=== PATIENT | female | born 2000 ===

== ENCOUNTER 2023-06-19 17:44 | Emergency (ER) | payer OTHER, BC, SELFPAY ==
[2023-06-19 17:48] VITALS: BP 108/74; PULSE 105; RESP 18; TEMP 37.2; O2SAT 97; BMI 22.1
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
--- OUTSIDE RECORDS SUMMARY | 2023-06-19 18:48 | XMS_ITS | Clinical Summary ---
Author Name Unknown Organization [facility] Address [address] [place] [address] Care Team Providers Care Geriatric Assistant Name Role Phone No Ref-Primary, Physician Primary Care Provider Allergies No known active allergies Medications Medication Sig Dispensed Refills Start Date End Date Status ibuprofen (ADVIL,MOTRIN) 100 MG/5ML suspension Take 20 mLs (400 mg) by mouth every 6 hours as needed 120 mL 0 07/19/2015 Active hydrOXYzine (ATARAX) 25 MG tablet Take 1 tablet (25 mg) by mouth 3 times daily as needed for anxiety 12 tablet 11/21/2019 Active Encounters Date Type Department Care Team Description 04/29/2023 7:15 PM CDT - 04/29/2023 8:08 PM CDT Emergency [facility] Emergency Dept [address] [place] [address] Leandro Stark PA-C Fall, initial encounter; Neck pain on left side; Sinus tachycardia Discharge Disposition: Home or Self Care 04/29/2023 Travel from Last 3 Months Social History Tobacco Use Types Packs/Day Years Used Date Smoking Tobacco: Never Assessed Adolescent Education Answer Date Record ed Getting School Help Needed Not on file 10/29 Sex and Gender Information Value Date Recorded Sex Assigned at Not on file Gender Identity Not on file Sexual Orientation Not on file Last Filed Vital Signs Vital Sign Reading Time Taken Comments Blood Pressure 125/86 04/29/2023 8:05 PM CDT Pulse 105 04/29/2023 8:05 PM CDT Temperature 37.6 ??C (99.6 ??F) 04/29/2023 7:11 PM CD T Respiratory Rate 18 04/29/2023 7:11 PM CDT Oxygen Saturation 98% 04/29/2023 8:05 PM CDT Inhaled Oxygen Concentration - - Weight 59 kg (130 lb) 04/29/2023 7:11 PM CDT Height 160 cm (5' 3) 04/29/2023 7:11 PM CDT Body Mass Index 23.03 04/29/2023 7:11 PM CDT Plan of Treatment Health Maintenance Due Date Last Done Comments ADVANCE CARE PLANNING 2002 ANNUAL REVIEW OF HM ORDERS 2002 YEARLY PREVENTIVE VISIT 2002 HEPATITIS B IMMUNIZATION (2 of 3 - 3-dose series) 01/15/2004 12/18/2003 IPV IMMUNIZATION (3 of 3 - 4-dose series) 12/27/2007 06/26/2007, 12/18/2003 HIV SCREENING 2017 HEPATITIS C SCREENING 2020 CHLAMYDIA SCREENING 06/13/2021 06/13/2020, COVID-19 Vaccine ( season) 2022 04/27/2021, 03/30/2021 PHQ-2 (once per calendar year) 2023 PAP 06/05/2023 INFLUENZA VACCINE (Season Ended) 2023 11/27/2018, 11/24/2015, 12/25/2014, Additional history exists DTAP/TDAP/TD IMMUNIZATION (5 - Td or Tdap) 05/13/2024 05/13/2014, 06/26/2007, 12/18/2003, Additional history exists Pneumococcal Vaccine: Pediatrics (0 to 5 Years) and At-Risk Patients (6 to 64 Years) Aged Out 12/18/2003, 2002 No longer eligibl e based on patient's age to complete this topic HPV IMMUNIZATION Completed 12/25/2014, , 05/13/2014 MENINGITIS IMMUNIZATION Completed 03/09/2019, 05/13 RSV MONOCLONAL ANTIBODY Aged Out No l onger eligible based on patient's age to complete this topic Procedures Procedure Name Priority Date/Time Associated Diagnosis Comments XR CERVICAL SPINE 2/3 VIEWS STAT 04/29/2023 7:43 PM CDT EKG 12-LEAD, TRACING ONLY STAT 04/29/2023 7:20 PM CDT CHLAMYDIA TRACHOMATIS PCR Routine 06/13/2020 from Last 3 Months or Most Recently Relevant to Health Maintenance Results * Cervical spine XR, 2-3 views (04/29/2023 7:43 PM CDT) Anatomical Region Laterality Modality Spine Digital Radiogra phy 04/29/2023 7:43 PM CDT Impressions 04/29/2023 7:45 PM CDT IMPRESSION: No fracture. Normal vertebral heights and alignment. Normal disc spaces and facets for age. Normal extraspinal structures. Narrative 04/29/2023 7:45 PM CDT EXAM: XR CERVICAL SPINE 2/3 VIEWS LOCATION: [facility] DATE: 04/29/2023 INDICATION: left sided pain after a fall COMPARISON: None. Procedure Note Apollo Kaur MD - 04/29/2023 EXAM: XR CERVICAL SPINE 2/3 VIEWS LOCATION: [facility] DATE: 04/29/2023 INDICATION: left sided pain after a fall COMPARISON: None. IMPRESSION: No fracture. Normal vertebral heights and alignment. Normaldisc spaces and facets for age. Normal extraspinal structures. Leandro Stark PA-C IMG DIAGNOSTIC IMAGI NG ORDERABLES * EKG 12 lead (04/29/2023 7:20 PM CDT) Systolic Blood Pressure mmHg RADIOLOGY RESULTS Diastolic Blood Pressure mmHg RADIOLOGY RESULTS Ventricular Rate 137 BPM RAD IOLOGY RESULTS Atrial Rate 137 BPM RADIOLOG Y RESULTS AR Interval 132 ms RADIOLOG Y RESULTS QRS Duration 74 ms RADIOLO GY RESULTS QT 286 ms RADIOLOGY RESULTS QTc 431 ms RADIOLOGY RESULTS P [place] 50 degrees RADIOLOGY RESULTS R AXIS 80 degrees RADIOLOGY RESULTS T [place] 36 degrees RADIOLOGY RESULTS Interpretation ECG Sinus tachycardia Nonspecific ST abnormality Abnormal ECG When compared with ECG of 11-DEC-2019 00:11, No significant change was found Confirmed by - EMERGENCY ROOM, PHYSICIAN ([id number]), telegraph editor ONEL DOMINGUEZ ([place]) on 05/02/2023 7:13:18 AM RADIOLOGY RESULTS 04/29/2023 7:20 PM CDT 05/02/2023 7:13 AM CDT Leandro Stark PA-C ECG ORDERABLES RADIOLOGY RESULTS * Chlamydia trachomatis PCR (06/13/2020) Specimen Description VAG[facility]AL [facility]) Chlamydia Trachomatis PCR Negative Negative [facility] ([facility]) 06/13/2020 Narrative [facility] ([facility]) - 06/13/2020 LAB RESULT [facility] Provider Outside LAB - MICRO GENERAL ORDERABLES [facility] ([facility]) [address] [place] [address], [facility] [phone] from Last 3 Months or Most Recently Relevant to Health Maintenance Care Teams Geriatric Assistant Relationship Specialty Start Date End Date No Ref-Primary, Physician PCP - General 04/29/23
--- OUTSIDE RECORDS SUMMARY | 2023-06-19 18:48 | XMS_ITS | Referral Summary ---
Author Name Unknown Organization [facility] Address [address] [place] [id number] Care Team Providers Care Auto Parts Professional Name Role Phone No Ref-Primary, Physician Primary Care Provider Encounters Date Type Department Care Team Description 04/29/2023 Travel 04/29/2023 7:15 PM CDT - 04/29/2023 8:08 PM CDT Emergency [facility] Emergency Dept [address] [place] [address] [phone] Leandro Stark PA-C Fall, initial encounter; Neck pain on left side; Sinus tachycardia Discharge Disposition: Home or Self Care from Last 3 Months Allergies No known active allergies Medications Medication Sig Dispensed Refills Start Date End Date Status ibuprofen (ADVIL,MOTRIN) 100 MG/5ML suspension Take 20 mLs (400 mg) by mouth every 6 hours as needed 120 mL 0 07/19/2015 Active hydrOXYzine (ATARAX) 25 MG tablet Take 1 tablet (25 mg) by mouth 3 times daily as needed for anxiety 12 tablet 11/21/2019 Active Social History Tobacco Use Types Packs/Day Years [...] 04/29/2023 7:11 PM CDT Plan of Treatment Not on file Procedures Procedure Name Priority Date/Time Associated Diagnosis [...] EXAM: XR CERVICAL SPINE 2/3 VIEWS LOCATION: [facility] DATE: 04/29/2023 INDICATION: left sided pain after a fall COMPARISON: None. Procedure Note Apollo Kaur MD - 04/29/2023 EXAM: XR CERVICAL SPINE 2/3 VIEWS LOCATION: [facility] DATE: 04/29/2023 INDICATION: left sided pain [...] Atrial Rate 137 BPM RADIOLOG Y RESULTS ME Interval 132 ms RADIOLOG Y RESULTS QRS Duration 74 ms RADIOLO GY RESULTS QT 286 ms RADIOLOGY RESULTS QTc 431 ms RADIOLOGY RESULTS P [place] 50 degrees RADIOLOGY RESULTS R AXIS 80 degrees RADIOLOGY RESULTS T [place] 36 degrees RADIOLOGY RESULTS Interpretation ECG Sinus tachycardia Nonspecific ST abnormality Abnormal ECG When compared with ECG of 11-DEC-2019 00:11, No significant change was found Confirmed by - EMERGENCY ROOM, PHYSICIAN ([id number]), general expeditor ONEL DOMINGUEZ ([id number]) on 05/02/2023 7:13:18 AM RADIOLOGY RESULTS 04/29/2023 7:20 PM CDT 05/02/2023 7:13 AM CDT Leandro Stark PA-C ECG ORDERABLES RADIOLOGY RESULTS * Chlamydia trachomatis PCR (06/13/2020) Specimen Description [facility]) Chlamydia Trachomatis PCR Negative Negative [facility] ([facility]) 06/13/2020 Narrative [facility] ([facility]) - 06/13/2020 LAB RESULT [place] Provider Outside LAB - MICRO GENERAL ORDERABLES [facility] ([facility]) [address] [place] [address], [facility] [phone] from Last 3 Months or Most Recently Relevant to Health Maintenance Care Teams [employer] Professional Relationship Specialty Start Date End Date No Ref-Primary, Physician PCP - General 04/29/23
--- OUTSIDE RECORDS SUMMARY | 2023-06-19 18:49 | XMS_ITS ---
Author Name Unknown Organization [facility] Address [address] [place] [address] Care Team Providers Care Four Roll Calender Operator Name Role Phone Unavailable Unavailable Unavailable Surgery Details Not on file Complications Check Surgery Details section. Procedure Estimated Blood Loss Check Surgery Details section. Procedure Findings Check Surgery Details section. Procedure Specimens Taken Check Surgery Details section.
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
--- OUTSIDE RECORDS SUMMARY | 2023-06-19 18:49 | XMS_ITS | Encounter Summary ---
Author Name Unknown Organization [facility] Address [address] [place] [address] Care Team Providers Care Movie Shot Camera Operator Name Role Phone No Ref-Primary, Physician Primary Care Provider Encounter Details Date Type Department Care Team (Latest Contact Info) Description 04/29/2023 Travel Social History Tobacco Use Types Packs/Day Years Used Date Smoking Tobacco: Never Assessed Adolescent Education Answer Date Record ed Getting School Help Needed Not on file 10/29 Sex and Gender Information Value Date Recorded Sex Assigned at Not on file Gender Identity Not on file Sexual Orientation Not on file documented as of this encounter Plan of Treatment Not on file documented as of this encounter Visit Diagnoses Not on filedocumented in this encounter Care Teams Movie Shot Camera Operator Relationship Specialty Start Date End Date No Ref-Primary, Physician PCP - General 04/29/23 documented as of this encounter
--- OUTSIDE RECORDS SUMMARY | 2023-06-19 18:49 | XMS_ITS | Encounter Summary ---
Author Name Unknown Organization [place] Address [address] [place] [address]. [place] [address] Care Team Providers Care Bag End Sewer Name Role Phone Maria M Lee MD Primary Care Provider [phone] Terra Mcintyre PA-C Unavailable [phone] Fito Valencia MD Unavailable No Ref-Primary, Physician Primary Care Provider Reason for Visit * Reason Onset Date Comments MH/CD Inpatient 12/11/2019 Encounter Details Date Type Department Care Team ([facility] st Contact Info) Description 12/11/2019 Telephone [facility] Behavioral Health Intake [address] [place] [address] Generic, Behavioral IntakeMD MH/CD Inpatient Social History Tobacco Use Types Packs/Day Years Used Date Smoking Tobacco: Never Assessed Sex and Gender Information Value Date Recorded Sex Assigned at Not on file Gender Identity Not on file Sexual Orientation Not on file COVID-19 Exposure Response Date Recorded In the last month, have you been in contact with someone who was confirmed or suspected to have Coronavirus / COVID-19? No / Unsure 12/10/2019 11:12 PM HEADER SETUP OPERATOR documented as of this encounter Miscellaneous Notes * Telephone Encounter - Mami Almaguer - 12/11/2019 1:13 AM CST Patient cleared and ready for behavioral bed placement: Yes S: 19/F in [facility] ED for anxiety. Report from [facility] at 0111AM. B: Hx of anxiety. Pt reports an increase in anxiety sxs for the past few months and have escalated in the past 3 days. Pt reports not eating or sleeping well, has had an increase in panic attacks and occasional difficulty leaving her house due to her anxiety. Pt attends OP day treatment at [facility] and [facility] 5 days a week. Pt reports between school and OP treatment, she has a lot on her plate which exacerbates her anxiety. Pt reports not being med-compliant and that she feels something bad will happen if she takes her medications. No SI, SIB nor HI. No reported aggressive behaviors or psychotic sxs. Per concrete curer, pt is calm, pleasant and cooperative in the ED. Pt denies current drug or etoh abuse last reported use was on 10/21/19. No prior IP MH admissions. A: Voluntary - dad will sign pt in. No medical concerns. No covid sxs. Covid has been ordered, not collected. Drug screen has not been ordered. R: 0306AM - Called ED and ED reports pt was discharged home. Intake informed ED that pt will be removed from IP MH placement work list at this time. ER SETUP OPERATOR documented in this encounter Plan of Treatment Not on file documented as of this encounter Visit Diagnoses Not on filedocumented in this encounter Care Teams Bag End Sewer Relationship Specialty Start Date End Date Maria M Lee MD [address] [address] PCP - General Pediatrics 07/18/15 04/28/23 No Ref-Primary, Physician PCP - General 04/29/23 Terra Mcintyre PA-C [address] [place] [place] [address] Physician Health Care / Medical Job Titles Urology 06/18/20 04/28/23 Fito Valencia MD [facility] [address] [place] [address] Referring Physician Emergency Medicine 06/18/20 3 4 documented as of this encounter
--- OUTSIDE RECORDS SUMMARY | 2023-06-19 18:49 | XMS_ITS | Encounter Summary ---
Author Name Unknown Organization [place] Address [address] [place] [address] Care Team Providers Care Surgical Instrument Maker Name Role Phone No Ref-Primary, Physician Primary Care Provider Reason for Visit * Reason Comments Neck Pain Encounter Details Date Type Department Care Team (Late st Contact Info) Description 04/29/2023 7:15 PM CDT - 04/29/2023 8:08 PM CDT Emergency [facility] Emergency Dept [address] [place] [address] [phone] Leandro Stark PA-C [facility] [address] [place], [place] [id number] Fall, initial encounter; Neck pain on left side; Sinus tachycardia Discharge Disposition: Home or Self Care Social History Tobacco Use Types Packs/Day Years Used Date Smoking Tobacco: Never Assessed Adolescent Education Answer Date Record ed Getting School Help Needed Not on file 10/29 Sex and Gender Information Value Date Recorded Sex Assigned at Not on file Gender Identity Not on file Sexual Orientation Not on file documented as of this encounter Last Filed Vital Signs Vital Sign Reading [...] Mass Index 23.03 04/29/2023 7:11 PM CDT documented in this encounter Discharge Instructions * Discharge Instructions* Leandro Stark PA-C - 04/29/2023 8:03 PM CDT For pain, you may take Tylenol 1000mg every 8 hours and ibuprofen 400mg every 6 hours for pain. Use ice or heat as needed for discomfort. Rest. * Attachments The following attachments cannot be sent through Care Everywhere. * Cervical Pain (Turkmen) documented in this encounter Medications at Time of Discharge Medication Sig Dispensed Refills Start Date End Date hydrOXYzine (ATARAX) 25 MG tablet Take 1 tablet (25 mg) by mouth 3 times daily as needed for anxiety 12 tablet 11/21/2019 ibuprofen (ADVIL,MOTRIN) 100 MG/5ML suspension Take 20 mLs (400 mg) by mouth every 6 hours as needed 120 mL 0 07/19/2015 documented as of this encounter ED Notes * Curly Diggs RN - 04/29/2023 7:09 PM CDT Here for concern of left lateral neck pain. Stated that she got upset, jumped onto her couch and landed wrong, hit her head onto herself about 30 minutes ago and is now have neck pain. HR in the 140s-150s at rest, though patient is stating that she is feeling anxious. ABCs intact. Triage Assessment (Adult) Row Name 04/29/23 7686 Triage Assessment Airway WDL WDL Respiratory WDL Respiratory WDL WDL Cardiac WDL Cardiac WDL WDL * Leandro Stark PA-C - 04/29/2023 6:57 PM CDT History Chief Complaint: Neck Pain The history is provided by the patient. Abida Laureano is a 22 year old female who presents to the ED for left-sided neck pain after jumping on a couch approximately 30 minutes ago. Abida reports she was at her home and jumped on the couch wrong and landed on her head, twisting her neck backward and to the right. She denies any numbness, weakness, paresthesias or chest pain. Reports shortness of breath with her anxiety. She denies taking anything for pain. Independent Historian: None - Patient Only Review of External Notes: None Medications: Atarax Past Medical History: Anxiety Depression Physical Exam Patient Vitals for the past 24 hrs: BP Temp Temp src Pulse Resp SpO2 Height Weight 04/29/232004 125/86 -- -- 105 -- 98 % -- -- 04/29/23 191 (!) 143/94 99.6 ??F (37.6 ??C) Oral (!) 146 18 100 % 1.6 m (5' 3) 59 kg (130 lb) Physical Exam Constitutional: Pleasant. Cooperative. Eyes: Pupils equally round and reactive HENT: Head is normal in appearance. Oropharynx is normal with moist mucus membranes. Cardiovascular: Tachycardic. Regular rhythm and without murmurs. Respiratory: Normal respiratory effort, lungs are clear bilaterally. Musculoskeletal: Full ROM of bilateral upper extremities. 5/5 tube cutter strength bilaterally. Full ROM of C spine. No midline TTP. Skin: Normal, without rash. Neurologic: Cranial nerves grossly intact, normal cognition, no focal deficits. Alert and oriented x 3. Sensation intact to bilateral upper extremities. Psychiatric: Normal affect. Nursing notes and vital signs reviewed. Emergency Department Course ECG ECG taken at 1919, ECG read at [address] abnormality. Abnormal ECG No significant change as compared to prior, dated 12/11/2019. Rate 137 bpm. IA interval 132 ms. QRS duration 74 ms. QT/QTc 286/431 ms. P-R-T axes 50 80 36. Imaging: Cervical spine XR, 2-3 views Final Result IMPRESSION: No fracture. Normal vertebral heights and alignment. Normal disc spaces and facets for age. Normal extraspinal structures. Emergency Department Course & Assessments: Interventions: Medications acetaminophen (TYLENOL) tablet 1,000 mg (1,000 mg Oral $Given 04/29/231934) Assessments: 1919 I obtained history and examined the patient as noted above. 2004 I rechecked the patient and explained findings. We discussed plan for discharge and patient isin agreement with plan. Independent Interpretation (X-rays, CTs, rhythm strip): I personally evaluated the XR, no obvious compression fracture noted. Consultations/Discussion of Management or Tests: None Social Determinants of Health affecting care: None Disposition: The patient was discharged. Impression & Plan [facility] Diagnoses: None Medical Decision Making: Abida Laureano is a 22 year old female who presents to the ED for evaluation of neck pain after landing awkwardly. See HPI as above for additional details. Vitals and physical exam as above. X-ray obtained as above is negative for acute bony abnormality. Suspect strain or other soft tissue abnormality such as disc pathology. Pain developed after trauma, no suggestion that this is alternative etiology such as meningitis at this time. Discussed use of Tylenol, ibuprofen, ice, heat as needed. Dofeel patient safe for discharge home. Follow-up with primary as needed. ECG obtained prior to my evaluation due to tachycardia. Patient endorses anxiety. Suspect this as etiology of tachycardia. Discussed reasons to return. All questions answered. Patient discharged to home in stable condition. Diagnosis: ICD-10-CM 1. Fall, initial encounter W19.XXXA 2. Neck pain on left side M54.2 3. Sinus tachycardia R00.0 Scribe Disclosure: I, Kiersten Torres, am serving as a scribe at 7:38 PM on 04/29/2023 to document services personallyperformed by Leandro Stark PA-C based on my observations and the provider's statements to me. 04/29/2023 Leandro Stark PA-C This record was created at least in part using electronic voice recognition software, so please excuse any typographical errors. Leandro Stark PA-C 04/29/232109 documented in this encounter Plan of Treatment Not on file documented as of this encounter Procedures Procedure Name Priority Date/Time Associated Diagnosis Comments XR CERVICAL SPINE 2/3 VIEWS STAT 04/29/2023 7:43 PM CDT EKG 12-LEAD, TRACING ONLY STAT 04/29/2023 7:20 PM CDT documented in this encounter Results * Cervical spine XR, 2-3 views (04/29/2023 7:43 PM CDT) Anatomical Region Laterality Modality Spine Digital Radiogra phy 04/29/2023 7:43 PM CDT Impressions 04/29/2023 7:45 PM CDT IMPRESSION: No fracture. Normal vertebral heights and alignment. Normal disc spaces and facets for age. Normal extraspinal structures. Narrative 04/29/2023 7:45 PM CDT EXAM: XR CERVICAL SPINE 2/3 VIEWS LOCATION: [facility] DATE: 04/29/2023 INDICATION: left sided pain after a fall COMPARISON: None. Procedure Note Apollo Kaur MD - 04/29/2023 EXAM: XR CERVICAL SPINE 2/3 VIEWS LOCATION: [facility] DATE: 04/29/2023 INDICATION: left sided pain [...] Atrial Rate 137 BPM RADIOLOG Y RESULTS IA Interval 132 ms RADIOLOG Y RESULTS QRS Duration 74 ms RADIOLO GY RESULTS QT 286 ms RADIOLOGY RESULTS QTc 431 ms RADIOLOGY RESULTS P [place] 50 degrees RADIOLOGY RESULTS R AXIS 80 degrees RADIOLOGY RESULTS T [place] 36 degrees RADIOLOGY RESULTS Interpretation ECG Sinus tachycardia Nonspecific ST abnormality Abnormal ECG When compared with ECG of 11-DEC-2019 00:11, No significant change was found Confirmed by - EMERGENCY ROOM, PHYSICIAN ([id number]), editorial manager ONEL DOMINGUEZ ([place]) on 05/02/2023 7:13:18 AM RADIOLOGY RESULTS 04/29/2023 7:20 PM CDT 05/02/2023 7:13 AM CDT Leandro Stark PA-C ECG ORDERABLES RADIOLOGY RESULTS documented in this encounter Visit Diagnoses Diagnosis Fall, initial encounter Neck pain on left side Cervicalgia Sinus tachycardia Other specified cardiac dysrhythmias documented in this encounter Administered Medications Inactive Administered Medications - up to 3 most recent administrations Medication Order MAR Action Action Date Dose Rate Site acetaminophen (TYLENOL) tablet 1,000 mg 1,000 mg, Oral, ONCE, On Tue04/29/23 at 1935, For 1 dose, Maximum acetaminophen dose from all sources = 75 mg/kg/day not to exceed 4 gram $Given 04/29/2023 7:35 PM CDT 1,000 mg documented in this encounter Active and Recently Administered Medications Times are shown in CDT. Scheduled Medication Order 04/27/2023 04/28/2023 04/29/2023 acetaminophen (TYLENOL) tablet 1,000 mg (COMPLETED) 1,000 mg, Oral, ONCE, On Tue04/29/23 at 1935, For 1 dose, Maximum acetaminophen dose from all sources = 75 mg/kg/day not to exceed 4 gram 1934 ($Given - Provi antonino: Daisha Savage RN) documented in this encounter Care Teams Surgical Instrument Maker Relationship Specialty Start Date End Date No Ref-Primary, Physician PCP - General 04/29/23 documented as of this encounter
--- OUTSIDE RECORDS SUMMARY | 2023-06-19 18:49 | XMS_ITS | Clinical Summary ---
Author Name Unknown Organization [facility] Address [address], [place] [address] Care Team Providers Care Emerging Technologies Director Name Role Phone Jp White MD Primary Care Provider [phone] Source Comments You are receiving this document as you are listed as the primary care provider,follow-up provider, or the patient has been referred to you for consultation.This is in compliance with the Medicare and[facility] Hospital[facility] EHR Incentive Program,which states Providers who transition their patient to another setting of careor provider of care or refers their patient to another provider of care shouldprovide summary care record for each transition of care or referral. [facility] Allergies No known active allergies Medications Medication Sig Dispensed Refills Start Date End Date Status oxyCODONE (ROXICODONE) 5 MG immediate release tabletIndications:An kle fracture, right, closed, with routine healing, subsequent encounter Take 5 mg by mouth every 4 hours as needed for Pain. Active acetaminophen (TYLENOL) 325 MG tabletIndications:An kle fracture, right, closed, with routine healing, subsequent encounter Take 325-650 mg by mouth every 4 hours as needed for Pain. Active hydrOXYzine HCl (ATARAX) 25 MG tablet Take 1-2 Tablets by mouth every 6 hours as needed for Itching. 20 Tablet 12/18/2018 Active phenazopyridine (PYRIDIUM) 200 MG tablet Take 200 mg by mouth three times a day as needed. 06/06/2020 Active ibuprofen (MOTRIN) 200 MG tablet Take 200-400 mg by mouth every 4 hours as needed for Pain. Active compounded diazePAM vaginal suppositoryIndicatio ns:Pelvic floor dysfunction in female Insert 5 mg vaginally daily at bedtime. 90 Each 08/19/2020 Active Active Problems Problem Noted Date Diagnosed Date Ankle fracture, right 07/28/2016 Social History Tobacco Use Types Packs/Day Years Used Date Smoking Tobacco: Never Smokeless Tobacco: Never Alcohol Use Standard Drinks/Week Comments No 0 (1 standard drink = 0.6 oz pur e alcohol) Sex and Gender Information Value Date Recorded Sex Assigned at Not on file Gender Identity Not on file Sexual Orientation Not on file Last Filed Vital Signs Vital Sign Reading Time Taken Comments Blood Pressure 102/72 06/20/2020 9:25 AM CDT Pulse 105 06/20/2020 9:25 AM CDT Temperature 36.9 ??C (98.5 ??F) 12/18/2018 6:59 PM CS T Respiratory Rate 14 06/20/2020 9:25 AM CDT Oxygen Saturation 98% 12/18/2018 6:59 PM LADIES' LOCKER ROOM ATTENDANT Inhaled Oxygen Concentration - - Weight - - Height - - Body Mass Index - - Plan of Treatment Health Maintenance Due Date Last Done Comments Cervical Cancer Screening Due 2002 Hep C Screening (Preventive Services) 2002 IPV (Polio) (3 of 3 - 4-dose series) 12/27/2007 06/26/2007, 12/18/2003 HIV Screening (Preventive Services) 2018 Adult Preventive Visit 2020 HepB (1) 2021 Chlamydia 06/13/2021 06/13/2020 COVID-19 Vaccine ( - season) 2022 Influenza (Season Ended) 2023 019, 11/24/2015, 12/25/2014, Additional history exists DTaP/Tdap/Td (5 - Tdap) 05/13/2024 05/14/19 15, 06/26/2007, 12/18/2003, Additional history exists Zoster/Shingles (1 of 2) 2052 Hib Completed 12/18/2003 Pneumococcal Aged Out 12/18/2003, 2002 No lo nger eligible based on patient's age to complete this topic HepA Completed 12/26/2007, 06/26/2007 HPV Vaccine Completed 12/25/2014, 08/08, 05/13/2014 MCV4 Completed 03/09/2019, 05/13/2014 Care Teams Emerging Technologies Director Relationship Specialty Start Date End Date Jp White MD [facility] [address] PCP - General Family Practice 12/18/18
--- OUTSIDE RECORDS SUMMARY | 2023-06-19 18:49 | XMS_ITS | Clinical Summary ---
Author Name Unknown Organization [facility] Address [address] [place] [address] Care Team Providers Care Line Ordering Clinician Name Role Phone Unavailable Primary Care Provider Unavailabl e Source Comments Patient records contain information from all sites at [facility]. For routine questions regarding patient records, call [phone] during business hours, M-F 8:00 AM - 5:00 PM Central Time. Record requests for emergency care only can be directed to [phone] at any time.[facility] Allergies No known active allergies Medications Medication Sig Dispensed Refills Start Date End Date Status escitalopram (Lexapro) 10 mg tablet Take 1 tablet by mouth. 02/24/2021 Active hydrOXYzine (VISTARIL) 25 mg/mL injection 1 tablet as needed Active propranoloL (INDERAL) 10 mg tablet TAKE 1 TO 2 TABLETS BY MOUTH EVERY DAY NEEDED FOR ANXIETY 07/27/2021 Active LORazepam (ATIVAN) 1 mg tablet Take 0.5 mg by mouth. 08/09/2021 Active Active Problems No known active problems Social History Tobacco Use Types Packs/Day Years Used Date Smoking Tobacco: Former Cigarettes Q uit: 09/19/2021 Tobacco Cessation:Counseling Given: Not Answered Alcohol Use Standard Drinks/Week Comments Never 0 (1 standard drink = 0.6 oz pur e alcohol) Nutrition Answer Date Recorded Nutrition: EVOO Fat Source Unknown 06/17 Nutrition: Servings of Fruits/Vegetables per Day Not on file 06/17/2020 Dental Answer Date Recorded Dental: Regular Dentist Unknown 06/18/19 21 Sex and Gender Information Value Date Recorded Sex Assigned at Not on file Gender Identity Not on file Sexual Orientation Not on file Last Filed Vital Signs Vital Sign Reading Time Taken Comments Blood Pressure 124/70 10/03/2021 8:45 PM CDT Pulse 92 10/03/2021 8:45 PM CDT Temperature 36.8 ??C (98.2 ??F) 10/03/2021 8:02 PM CD T Respiratory Rate 20 10/03/2021 8:45 PM CDT Oxygen Saturation 98% 10/03/2021 8:45 PM CDT Inhaled Oxygen Concentration - - Weight 70.4 kg (155 lb 3.3 oz) 10/03/2021 8:03 P M CDT Height 160 cm (5' 3) 10/03/2021 8:03 PM CDT Body Mass Index 27.49 10/03/2021 8:03 PM CDT Plan of Treatment Health Maintenance Due Date Last Done Comments Cervical Cancer Screening 2002 Chlamydia and Gonorrhea Screening 2002 HIV Screening 2002 Hearing Screening during Well Child Visit 2002 Hepatitis C Screening 2002 1 week Well Child Check-Up 2002 1 month Well Child Check-Up 2002 2 month Well Child Check-Up 2002 4 month Well Child Check-Up 2002 6 month Well Child Check-Up 2002 9 month Well Child Check-Up 02/03/2003 12 month Well Child Check-Up 05/05/2003 15 month Well Child Check-Up 08/05/2003 18 month Well Child Check-Up 11/05/2003 Hepatitis B Vaccines (2 of 3 - 3-dose series) 01/15/2004 12/18/2003 2 year Well Child Check-Up 05/04/2004 30 month Well Child Check-Up 11/04/2004 3 year Well Child Check-Up 05/04/2005 Well Child Check-Up Completed in Past Year 05/04/2005 4 year Well Child Check-Up 05/04/2006 5 year Well Child Check-Up 05/05/2007 6 year Well Child Check-Up 05/04/2008 7 year Well Child Check-Up 05/04/2009 8 year Well Child Check-Up 05/04/2010 9 year Well Child Check-Up 05/05/2011 10 year Well Child Check-Up 05/04/2012 11 year Well Child Check-Up 05/04/2013 12 year Well Child Check-Up 05/04/2014 13 year Well Child Check-Up 05/05/2015 14 year Well Child Check-Up 05/04/2016 15 year Well Child Check-Up 05/04/2017 16 year Well Child Check-Up 05/04/2018 19 year Well Child Check-Up 05/05/2019 18 year Well Child Check-Up 05/04/2020 19 year Well Child Check-Up 05/04/2021 20 year Well Child Check-Up 05/04/2022 COVID-19 Vaccine ( season) 2022 04/27/2021, 03/30/2021 Influenza Vaccine (#1) 2022 9, 11/24/2015, 12/25/2014, Additional history exists Depression Screening (Annual PHQ-2) 02/07/2023 23 year Well Child Check-Up 05/05/2023 Well Child Check-Up (WCC) 05/05/2023 DTaP,Tdap,and Td Vaccines (5 - Td or Tdap) 05/13/2024 05/13/2014, 06/26/2007, 12/18/2003, Additional history exists Pneumococcal vaccine (0-64 years) Aged Out 12/18/2003, 2002 No longer eligibl e based on patient's age to complete this topic HPV Vaccines Completed 12/25/2014, 08/08, 05/13/2014 Meningococcal Vaccine Completed 03/09/2019, 015
== END 2023-06-19 19:35 | disposition home or self-care (01) ==
PROVIDERS: Emergency Provider Family Medicine
DX: G44.319 Acute post-traumatic headache, not intractable (principal); F07.81 Postconcussional syndrome
CPT/HCPCS: 70450; 72125; 99284

== ENCOUNTER 2023-07-03 14:11 | Emergency (ER) | payer BC, SELFPAY ==
[2023-07-03 14:13] VITALS: BP 120/75; PULSE 99; RESP 18; TEMP 36.8; O2SAT 98; BMI 23.0
[2023-07-03 14:30] LABS: Appearance Urine Cloudy (Clear); Bilirubin Urine Negative (Negative); Blood Urine 2+ (Negative); Color Urine Yellow (Yellow); Glucose Urine Negative (Negative); Ketones Urine Negative (Negative); Leukocyte Esterase Urine Trace (Negative); Nitrite Urine Negative (Negative); Protein Urine Negative (Negative); pH Urine 8.5 (5.0-8.5)
[2023-07-03 14:39] LABS: WBC Urine 0-2 (0-5)
[2023-07-03 14:40] LABS: Amorphous Sediment Urine Many; Bacteria Urine Few; Squamous Epithelial Cell Urine Moderate (None-Few)
--- NOTE | 2023-07-03 14:48 | ED_ITS ---
HPI - General Adult General Chief complaint: Groin Pain Stated complaint: Poss UTI Time Seen by Provider: 07/03/23 14:15 Source: patient Mode of arrival: ambulatory Limitations: no limitations History of Present Illness HPI narrative: 23-year-old female coming in today complaining of dysuria, vaginal itching and discharge. States that symptoms have been present for the last 2 days. The dysuria however just started this morning. She denies any fevers or chills. She denies any changes in the color or scent of her urine. She denies any flank or abdominal pain. Denies any nausea or vomiting. Does state that 2 days ago she had a new sexual partner in the did use a condom. She is concerned about the potential of STI's. States that the discharged itching was present prior to her sexual encounter. Describes the discharge as chunky and white. Related Data Home Medications ?Medication ?Instructions ?Recorded ?Confirmed lorazepam 0.5 mg tablet 0.5 mg PO 3XD PRN panic attack 06/19/23 06/19/23 quetiapine 50 mg tablet,extended 50 mg PO QPM depressive disorder 06/19/23 06/19/23 release 24 hr sertraline 100 mg tablet 100 mg PO DAILY 06/19/23 06/19/23 sertraline 50 mg tablet 50 mg PO DAILY 06/19/23 06/19/23 tretinoin 0.025 % topical cream applic topical 06/19/23 (Retin-A) Previous Rx's ?Medication ?Instructions ?Recorded fluconazole 100 mg tablet 100 mg PO DAILY #1 tab 07/03/23 (Diflucan) Allergies Allergy/AdvReac Type Severity Reaction Status Date / Time No Known Drug Allergies Allergy Verified 06/19/23 17:55 Review of Systems Status of ROS: Reports: 6 or more systems reviewed and unremarkable except as noted in History and below PFSH PFS Social History Smoking Status: Current every day smoker How often do you have a drink containing alcohol: 2-4 times a month AUDIT-C Alcohol total score: 2 Non-prescribed substance use: denies use Exam Narrative: Exam Narrative: Well-nourished well-developed patient in no acute distress. Alert and oriented. Answers questions appropriately. Mood and affect are appropriate. Thoughts are goal oriented and rational. No tangential or magical thinking noted. Patient speaks in full sentences without needing to catch their breath. HEENT: Normocephalic atraumatic. Pupils are equally round reactive to light. Extraocular muscles are intact. Conjunctivae are moist without any icterus noted. Moist mucous membranes. Skin: Exposed skin Well perfused without any obvious rashes. : Defers Const: Vital Signs, click to edit/add: Vital Signs - 24 hr 07/03/23 14:13 Temperature 98.3 F Pulse Rate [Right Pulse Oximeter] 99 Respiratory Rate 18 Blood Pressure [Ri ght Upper Arm] 120/75 Pulse Oximetry 98 Oxygen Delivery Me thod Room Air Course Course ED Course: Urinalysis shows cloudy urine with 2+ blood, trace leukocyte esterase, 10-25 RBCs. However did have moderate squamous epithelial cells. Of note, patient is not menstruating today. Her next menses is due any day. Vital Signs Vital signs: Initial Vital Signs Temperature 98.3 F 07/03/23 14:13 Temperature Source Temporal Artery Scan 07/03/23 14:13 Pulse Rate 99 07/03/23 14:13 Pulse Rhythm Regular 07/03/23 14:13 Pulse Strength 3+ Normal 07/03/23 14:13 Respiratory Rate 18 07/03/23 14:13 Blood Pressure 120/75 07/03/23 14:13 Blood Pressure Mean 90 07/03/23 14:13 Blood Pressure Position Sitting 07/03/23 14:13 Pulse Oximetry 98 07/03/23 14:13 Oxygen Delivery Method Room Air 07/03/23 14:13 Vital Signs Temperature 98.3 F 07/03/23 14:13 Pulse Rate 99 07/03/23 14:13 Respiratory Rate 18 07/03/23 14:13 Blood Pressure 120/75 07/03/23 14:13 Pulse Oximetry 98 07/03/23 14:13 Oxygen Delivery Method Room Air 07/03/23 14:13 Temperature 98.3 F 07/03/23 14:13 Pulse Rate 99 07/03/23 14:13 Respiratory Rate 18 07/03/23 14:13 Blood Pressure 120/75 07/03/23 14:13 Pulse Oximetry 98 07/03/23 14:13 Oxygen Delivery Method Room Air 07/03/23 14:13 Medical Decision Making MDM Narrative Medical decision making narrative: 23-year-old female with symptoms consistent with yeast vaginitis. Potential for UTI. Again, patient did not wish to have a exam today. Will treat with 1 dose of Diflucan and Keflex for 5 days. We discussed STI testing, since her sexual intercourse was only 2 days ago would be too early for anything to come back positive. I recommend she follow up with her clinic in anywhere from 2-4 weeks to have STI testing done. Lab Data Lab results reviewed: Yes I reviewed the patient's lab results Labs: Lab Results 07/03/23 Range/Units 14:23 Urine Color Yellow (Yellow) Urine Appearance Cloudy A (Clear) Urine pH 8.5 (5.0-8.5) Ur Specific [place] 1.020 (1.000-1.030) Urine Protein Negative (Negative) Urine Glucose (UA) Negative (Negative) Urine Ketones Negative (Negative) Urine Blood 2+ A (Negative) Urine Nitrite Negative (Negative) Urine Bilirubin Negative (Negative) Urine Urobilinogen 1.0 (0.2-1.0) Ur Leukocyte Esterase Trace A (Negative) Urine RBC 10-25 A (0-2) Urine WBC 0-2 (0-5) Ur Squamous Epith Cells Moderate A (None-Few) Amorphous Sediment Many A (None) Urine Bacteria Few A (None) Discharge Plan Discharge Clinical Impression: UTI (urinary tract infection), Yeast vaginitis Patient Disposition: Home, Self-Care Condition: Stable Additional Instructions: Diflucan for yeast vaginitis sent to pharmacy. Keflex for UTI sent to [facility]. Recommend you follow-up with your primary care provider in 2-4 weeks to request sexually transmitted infection testing. Prescriptions: New fluconazole [Diflucan] 100 mg tablet 100 mg PO DAILY Qty: 1 0RF No Action tretinoin [Retin-A] 0.025 % cream topical sertraline 100 mg tablet 100 mg PO DAILY lorazepam 0.5 mg tablet 0.5 mg PO 3XD PRN (Reason: panic attack) sertraline 50 mg tablet 50 mg PO DAILY Hold Instructions: Order Change quetiapine 50 mg tablet extended release 24 hr 50 mg PO QPM Follow Up/Referrals: Provider,Not a Local [Primary Care Provider] - Stand Alone Forms: [employer] Info Instructions
--- OUTSIDE RECORDS SUMMARY | 2023-07-03 14:51 | XMS_ITS | Clinical Summary ---
Author Organization [facility] [employer] [facility] Address [place], [place] [address] Care Team Providers Care Internal Medicine Veterinary Technician Name Role Phone Benjy Li MD Primary Care Provider [phone] Allergies No known active allergies Medications Medication [...] Encounters Date Type Department Care Team Description 06/23/2023 Orders Only [facility] [address] [place] [address] [phone] Benjy Li MD Outside Order 06/13/2023 Telephone [facility] [address] [place] [address] Benjy Li MD Lab (No Orders) 06/09/2023 Travel from Last 3 Months Immunizations Name Administration [...] Comments Blood Pressure 102/68 01/11/2023 8:36 AM PUMP OILER Pulse 92 01/11/2023 8:36 AM PUMP OILER Temperature 36.6 ??C (97.9 ??F) 01/07/2023 11:[address] Respiratory Rate 16 11/18/2022 10:07 AM CDT Oxygen Saturation 98% 01/07/2023 11:26 AM PUMP OILER Inhaled Oxygen Concentration - - Weight 77.6 kg (171 lb) 01/11/2023 8:36 AM PUMP OILER Height 160.7 cm (5' 3.25) 01/11/2023 8:36 AM CS T Body Mass Index 30.05 01/11/2023 8:36 AM PUMP OILER Plan of Treatment Health Maintenance Due Date [...] age [age] Completed 03/09/2019, 05/13/2014 Care Teams Internal Medicine Veterinary Technician Relationship Specialty [place] [address] [place], [place] [id number] PCP - General Family Practice 03/21/23
--- OUTSIDE RECORDS SUMMARY | 2023-07-03 14:51 | XMS_ITS | Encounter Summary ---
Author Organization [facility] Address [address] [place] [address]. [place] [address] Care Team Providers Care Automated Process Operator Name Role Phone Maria M Lee MD Primary Care Provider [phone] Terra Mcinty[place] PA-C Unavailable Fito Valencia MD Unavailable No Ref-Primary, Physician Primary Care Provider Reason for Visit * Reason Onset Date Comments MH/CD Inpatient 12/11/2019 Encounter Details Date Type Department Care Team ([facility] st Contact Info) Description 12/11/2019 Telephone [facility] Intake [address] [place] [address] Generic, Behavioral Intake, MH/CD Inpatient Social History Tobacco Use Types [...] COVID-19? No / Unsure 12/10/2019 11:12 PM FOOD AND BEVERAGE MANAGER documented as of this encounter Miscellaneous Notes * Telephone Encounter - Mami Almaguer - 12/11/2019 1:13 AM CST Patient cleared and ready for behavioral bed placement: Yes S: 19/F in [facility] ED for anxiety. Report from [facility] at 0111AM. B: Hx of anxiety. Pt reports an increase in anxiety sxs for the past few months and have escalated in the past 3 days. Pt reports not eating or sleeping well, has had an increase in panic attacks and occasional difficulty leaving her house due to her anxiety. Pt attends OP day treatment at [facility] and [facility] 5 days a week. Pt reports between school and OP treatment, she has a lot on her plate which exacerbates her anxiety. Pt reports not being med-compliant and that she feels something bad will happen if she takes her medications. No SI, SIB nor HI. No reported aggressive behaviors or psychotic sxs. Per development analyst, pt is calm, pleasant and cooperative in [...] MH placement work list at this time. AND BEVERAGE MANAGER documented in this encounter Plan of Treatment Not on file documented as of this encounter Visit Diagnoses Not on filedocumented in this encounter Care Teams Automated Process Operator Relationship Specialty Start Date End Date Maria M Lee MD [id number] [place] [address] PCP - General Pediatrics 07/18/15 04/28/23 No Ref-Primary, Physician PCP - General 04/29/23 Terra Mcintyre PA-C [address] [place] [address] Physician Safety Tech Urology 06/18/20 04/28/23 Fito Valencia MD [facility] [address] [place] [address] Referring Physician Emergency Medicine 06/18/20 4 documented as of this encounter
--- OUTSIDE RECORDS SUMMARY | 2023-07-03 14:51 | XMS_ITS ---
Author Organization [facility] Address [address] [place] [address] Care Team Providers Care Production Assembly Operator Name Role Phone Unavailable Unavailable Unavailable Surgery Details Not on file Complications Check Surgery Details section. Procedure Estimated Blood Loss Check Surgery Details section. Procedure Findings Check Surgery Details section. Procedure Specimens Taken Check Surgery Details section.
--- OUTSIDE RECORDS SUMMARY | 2023-07-03 14:51 | XMS_ITS | Clinical Summary ---
Author Organization [facility] Address [address], [place] [address] Care Team Providers Care Brine Tank Operator Name Role Phone Jp White MD Primary Care Provider [phone] Source Comments You are receiving this document as you are listed as the primary care provider,follow-up provider, or the patient has been referred to you for consultation.This is in compliance with the Medicare andC[facility] Clinic Foundationcaid EHR Incentive Program,which states Providers who transition their patient to another setting of careor provider of care or refers their patient to another provider of care shouldprovide summary care record for each transition of care or referral. [facility] Allergies No known active allergies Medications Medication [...] CDT Oxygen Saturation 98% 12/18/2018 6:59 PM HISTORY PROFESSOR Inhaled Oxygen Concentration - - Weight - [...] 2021 Chlamydia 06/13/2021 06/13/2020 COVID-19 Vaccine ( season) 2022 Influenza (Season Ended) 2023 019, [...] 05/13/2014 MCV4 Completed 03/09/2019, 05/13/2014 Care Teams Brine Tank Operator Relationship Specialty Start Date End Date Jp White MD [facility] [address] PCP - General Family Practice 12/18/18
--- OUTSIDE RECORDS SUMMARY | 2023-07-03 14:51 | XMS_ITS | Clinical Summary ---
Author Organization [facility] Address [address] [place] [address] Care Team Providers Care Clay Press Operator Name Role Phone No Ref-Primary, Physician [...] CDT - 04/29/2023 8:08 PM CDT Emergency [facility] Emergency Dept [address] [place] [address] Leandro Stark PA-C Fall, initial encounter; Neck [...] EXAM: XR CERVICAL SPINE 2/3 VIEWS LOCATION: [facility] DATE: 04/29/2023 INDICATION: left sided pain after a fall COMPARISON: None. Procedure Note Apollo Kaur MD - 04/29/2023 EXAM: XR CERVICAL SPINE 2/3 VIEWS LOCATION: [facility] DATE: 04/29/2023 INDICATION: left sided pain [...] Atrial Rate 137 BPM RADIOLOG Y RESULTS SD Interval 132 ms RADIOLOG Y RESULTS QRS Duration 74 ms RADIOLO GY RESULTS QT 286 ms RADIOLOGY RESULTS QTc 431 ms RADIOLOGY RESULTS P [place] 50 degrees RADIOLOGY RESULTS R AXIS 80 degrees RADIOLOGY RESULTS T [place] 36 degrees RADIOLOGY RESULTS Interpretation ECG Sinus tachycardia Nonspecific ST abnormality Abnormal ECG When compared with ECG of 11-DEC-2019 00:11, No significant change was found Confirmed by - EMERGENCY ROOM, PHYSICIAN ([id number]), senior editor ONEL DOMINGUEZ ([place]) on 05/02/2023 7:13:18 [...] MICRO GENERAL ORDERABLES [facility] ([facility]) [address] [place] [address], [facility] [phone] from Last 3 Months or Most Recently Relevant to Health Maintenance Care Teams Clay Press Operator Relationship Specialty Start Date End Date No Ref-Primary, Physician PCP - General 04/29/23
--- OUTSIDE RECORDS SUMMARY | 2023-07-03 14:51 | XMS_ITS | Encounter Summary ---
Author Organization [facility] Address [address] [place] [address] Care Team Providers Care Special Education Superintendent Name Role Phone No Ref-Primary, Physician Primary [...] on filedocumented in this encounter Care Teams Special Education Superintendent Relationship Specialty Start Date End Date No Ref-Primary, Physician PCP - General 04/29/23 documented as of this encounter
--- OUTSIDE RECORDS SUMMARY | 2023-07-03 14:51 | XMS_ITS | Clinical Summary ---
Author Organization [facility] Address [address] [place] [address] Care Team Providers Care Grain Oilseed Or Pasture Farm Worker Name Role Phone Unavailable Primary Care Provider Unavailabl e Source Comments Patient records contain information from all sites at [facility]. For routine questions regarding patient records, call [phone] during business hours, M-F 8:00 AM - 5:00 PM Central Time. Record requests for emergency care only can be directed to [phone] at any time.[facility] Allergies No known active allergies Medications Medication [...]
--- OUTSIDE RECORDS SUMMARY | 2023-07-03 14:51 | XMS_ITS | Referral Summary ---
Author Organization [employer] Address [address] [place] [address] Care Team Providers Care Hospital Aides And Assistants Teacher Name Role Phone No Ref-Primary, Physician Primary Care Provider Encounters Date Type Department Care Team Description 04/29/2023 Travel 04/29/2023 7:15 PM CDT - 04/29/2023 8:08 PM CDT Emergency [facility] Emergency Dept [address] [place] [address] [phone] Leandro Stark PA-C Fall, initial encounter; Neck [...] EXAM: XR CERVICAL SPINE 2/3 VIEWS LOCATION: [facility] DATE: 04/29/2023 INDICATION: left sided pain after a fall COMPARISON: None. Procedure Note Apollo Kaur MD - 04/29/2023 EXAM: XR CERVICAL SPINE 2/3 VIEWS LOCATION: [facility] DATE: 04/29/2023 INDICATION: left sided pain after [...] Atrial Rate 137 BPM RADIOLOG Y RESULTS WI Interval 132 ms RADIOLOG Y RESULTS QRS Duration 74 ms RADIOLO GY RESULTS QT 286 ms RADIOLOGY RESULTS QTc 431 ms RADIOLOGY RESULTS P [place] 50 degrees RADIOLOGY RESULTS R AXIS 80 degrees RADIOLOGY RESULTS T [place] 36 degrees RADIOLOGY RESULTS Interpretation ECG Sinus tachycardia Nonspecific ST abnormality Abnormal ECG When compared with ECG of 11-DEC-2019 00:11, No significant change was found Confirmed by - EMERGENCY ROOM, PHYSICIAN ([id number]), editor in chief newspaper ONEL DOMINGUEZ ([id number]) on 05/02/2023 7:13:18 AM RADIOLOGY RESULTS 04/29/2023 7:20 PM CDT 05/02/2023 7:13 AM CDT Leandro Stark PA-C ECG ORDERABLES RADIOLOGY RESULTS * Chlamydia trachomatis PCR (06/13/2020) Specimen Description VAGINAL [facility] ([facility]) Chlamydia Trachomatis PCR Negative Negative [facility] ([facility]) 06/13/2020 Narrative [facility] ([facility]) - 06/13/2020 LAB RESULT [facility] [place] Provider Outside LAB - MICRO GENERAL ORDERABLES [facility] ([facility]) [address] [place] [address], [facility] [phone] from Last 3 Months or Most Recently Relevant to Health Maintenance Care Teams Hospital Aides And Assistants Teacher Relationship Specialty Start Date End Date No Ref-Primary, Physician PCP - General 04/29/23
--- OUTSIDE RECORDS SUMMARY | 2023-07-03 14:51 | XMS_ITS | Referral Summary ---
Author Organization [facility] Address [address] [place] [address] Care Team Providers Care Necktie Maker Name Role Phone Unavailable Primary Care Provider Unavailabl e Source Comments Patient records contain information from all sites at [facility]. For routine questions regarding patient records, call [phone] during business hours, M-F 8:00 AM - 5:00 PM Central Time. Record requests for emergency care only can be directed to [phone] at any time.[facility] Allergies No known active allergies Medications Medication [...] 10/03/2021 8:03 PM CDT Plan of Treatment Not on file
--- OUTSIDE RECORDS SUMMARY | 2023-07-03 14:51 | XMS_ITS | Encounter Summary ---
Author Organization [facility] Address [address] [place] [address] Care Team Providers Care Health And Wellness Coordinator Name Role Phone No Ref-Primary, Physician Primary Care Provider Reason for Visit * Reason Comments Neck Pain Encounter Details Date Type Department Care Team (Late st Contact Info) Description 04/29/2023 7:15 PM CDT - 04/29/2023 8:08 PM CDT Emergency [facility] Emergency Dept [address] [place] [address] [phone] Leandro Stark PA-C [facility] [address] [place], [place] [id number] Fall, initial encounter; Neck pain on left [...] sent through Care Everywhere. * Cervical Pain ([place]) documented in this encounter Medications at Time [...] intact. Triage Assessment (Adult) Row Name 04/29/23 3305 Triage Assessment Airway WDL WDL Respiratory WDL [...] Full ROM of bilateral upper extremities. 5/5 acrobatic dancer strength bilaterally. Full ROM of C spine. No midline TTP. Skin: Normal, without rash. Neurologic: Cranial nerves grossly intact, normal cognition, no focal deficits. Alert and oriented x 3. Sensation intact to bilateral upper extremities. Psychiatric: Normal affect. Nursing notes and vital signs reviewed. Emergency Department Course ECG ECG taken at 0, ECG read at [address] abnormality. Abnormal ECG No significant change as compared to prior, dated 12/11/2019. Rate 137 bpm. [place] interval 132 ms. QRS duration 74 ms. QT/QTc 286/431 ms. P-R-T axes 50 80 36. Imaging: Cervical spine XR, 2-3 views Final Result IMPRESSION: No fracture. Normal vertebral heights and alignment. Normal disc spaces and facets for age. Normal extraspinal structures. Emergency Department Course & Assessments: Interventions: Medications acetaminophen (TYLENOL) tablet 1,000 mg (1,000 mg Oral $Given 04/29/23 193) Assessments: 1919 I obtained history and examined [...] The patient was discharged. Impression & Plan [facility] Diagnoses: None Medical Decision Making: Abida Laureano [...] EXAM: XR CERVICAL SPINE 2/3 VIEWS LOCATION: [facility] DATE: 04/29/2023 INDICATION: left sided pain after a fall COMPARISON: None. Procedure Note Apollo Kaur MD - 04/29/2023 EXAM: XR CERVICAL SPINE 2/3 VIEWS LOCATION: [facility] DATE: 04/29/2023 INDICATION: left sided pain after [...] Atrial Rate 137 BPM RADIOLOG Y RESULTS [place] Interval 132 ms RADIOLOG Y RESULTS QRS Duration 74 ms RADIOLO GY RESULTS QT 286 ms RADIOLOGY RESULTS QTc 431 ms RADIOLOGY RESULTS P [place] 50 degrees RADIOLOGY RESULTS R AXIS 80 degrees RADIOLOGY RESULTS T [place] 36 degrees RADIOLOGY RESULTS Interpretation ECG Sinus tachycardia Nonspecific ST abnormality Abnormal ECG When compared with ECG of 11-DEC-2019 00:11, No significant change was found Confirmed by - EMERGENCY ROOM, PHYSICIAN ([id number]), film editor ONEL DOMINGUEZ ([place]) on 05/02/2023 7:13:18 [...] RN) documented in this encounter Care Teams Health And Wellness Coordinator Relationship Specialty Start Date End Date No Ref-Primary, Physician PCP - General 04/29/23 documented as of this encounter
== END 2023-07-03 15:05 | disposition home or self-care (01) ==
PROVIDERS: Emergency Provider Family Medicine
DX: N39.0 Urinary tract infection, site not specified (principal); B37.31 Acute candidiasis of vulva and vagina
CPT/HCPCS: 81001; 87086; 99283

== ENCOUNTER 2023-07-17 00:25 | Emergency (ER) | payer BC, SELFPAY ==
[2023-07-17 00:39] VITALS: BP 125/72; PULSE 91; RESP 18; TEMP 36.8; O2SAT 99; BMI 23.0
--- OUTSIDE RECORDS SUMMARY | 2023-07-17 00:56 | XMS_ITS | Clinical Summary ---
Author Organization [facility] Address [address] [place] [address] Care Team Providers Care Family Resource Specialist Name Role Phone No Ref-Primary, Physician Primary [...] CDT - 04/29/2023 8:08 PM CDT Emergency [facility] Emergency Dept [address] [place] [address] Leandro Stark PA-C Fall, initial encounter; Neck [...] XR CERVICAL SPINE 2/3 VIEWS LOCATION: [facility] DATE: 04/29/2023 INDICATION: left sided pain after a fall COMPARISON: None. Procedure Note Apollo Kaur MD - 04/29/2023 EXAM: XR CERVICAL SPINE 2/3 VIEWS LOCATION: [facility] DATE: 04/29/2023 INDICATION: left sided [...] Atrial Rate 137 BPM RADIOLOG Y RESULTS [place] Interval 132 ms RADIOLOG Y RESULTS QRS Duration 74 ms RADIOLO GY RESULTS QT 286 ms RADIOLOGY RESULTS QTc 431 ms RADIOLOGY RESULTS P [place] 50 degrees RADIOLOGY RESULTS R AXIS 80 degrees RADIOLOGY RESULTS T [place] 36 degrees RADIOLOGY RESULTS Interpretation ECG Sinus tachycardia Nonspecific ST abnormality Abnormal ECG When compared with ECG of 11-DEC-2019 00:11, No significant change was found Confirmed by - EMERGENCY ROOM, PHYSICIAN ([id number]), proposal editor ONEL DOMINGUEZ ([place]) on 05/02/2023 7:13:18 [...] MICRO GENERAL ORDERABLES [facility] ([facility]) [address] [place] [address], [facility] [phone] from Last 3 Months or Most Recently Relevant to Health Maintenance Care Teams Family Resource Specialist Relationship Specialty Start Date End Date No Ref-Primary, Physician PCP - General 04/29/23
--- OUTSIDE RECORDS SUMMARY | 2023-07-17 00:56 | XMS_ITS | Encounter Summary ---
Author Organization [place] Address [address] [place] [address] Care Team Providers Care Health Promotion Manager Name Role Phone No Ref-Primary, Physician Primary Care Provider Reason for Visit * Reason Comments Neck Pain Encounter Details Date Type Department Care Team (Late st Contact Info) Description 04/29/2023 7:15 PM CDT - 04/29/2023 8:[address] [facility] Emergency Dept [address] [place] [address] [phone] Leandro Stark PA-C [facility] [address] [place], [place] [id number] Fall, initial encounter; Neck pain on left [...] sent through Care Everywhere. * Cervical Pain (Angolan) documented in this encounter Medications at Time [...] intact. Triage Assessment (Adult) Row Name 04/29/23 5579 Triage Assessment Airway WDL WDL Respiratory WDL [...] Full ROM of bilateral upper extremities. 5/5 wood sash and frame carpenter strength bilaterally. Full ROM of C spine. [...] to prior, dated 12/11/2019. Rate 137 bpm. IN interval 132 ms. QRS duration 74 ms. [...] The patient was discharged. Impression & Plan [facility] Diagnoses: None Medical Decision Making: Abida Laureano [...] EXAM: XR CERVICAL SPINE 2/3 VIEWS LOCATION: [facility] DATE: 04/29/2023 INDICATION: left sided pain after a fall COMPARISON: None. Procedure Note Apollo Kaur MD - 04/29/2023 EXAM: XR CERVICAL SPINE 2/3 VIEWS LOCATION: [facility] DATE: 04/29/2023 INDICATION: left sided [...] Atrial Rate 137 BPM RADIOLOG Y RESULTS IN Interval 132 ms RADIOLOG Y RESULTS QRS Duration 74 ms RADIOLO GY RESULTS QT 286 ms RADIOLOGY RESULTS QTc 431 ms RADIOLOGY RESULTS P [place] 50 degrees RADIOLOGY RESULTS R AXIS 80 degrees RADIOLOGY RESULTS T [place] 36 degrees RADIOLOGY RESULTS Interpretation ECG Sinus tachycardia Nonspecific ST abnormality Abnormal ECG When compared with ECG of 11-DEC-2019 00:11, No significant change was found Confirmed by - EMERGENCY ROOM, PHYSICIAN ([id number]), market editor ONEL DOMINGUEZ ([place]) on 05/02/2023 7:13:18 [...] documented in this encounter Care Teams Health Promotion Manager Relationship Specialty Start Date End Date No Ref-Primary, Physician PCP - General 04/29/23 documented as of this encounter
--- OUTSIDE RECORDS SUMMARY | 2023-07-17 00:56 | XMS_ITS | Referral Summary ---
Author Organization [place] Address [address] [place] [address] Care Team Providers Care Rfid Systems Engineer Name Role Phone No Ref-Primary, Physician Primary Care Provider Encounters Date Type Department Care Team Description 04/29/2023 Travel 04/29/2023 7:15 PM CDT - 04/29/2023 8:08 PM CDT Emergency [facility] Emergency Dept [address] [place] [address] [phone] Leandro Stark PA-C Fall, initial encounter; Neck [...] EXAM: XR CERVICAL SPINE 2/3 VIEWS LOCATION: [facility] DATE: 04/29/2023 INDICATION: left sided pain after a fall COMPARISON: None. Procedure Note Apollo Kaur MD - 04/29/2023 EXAM: XR CERVICAL SPINE 2/3 VIEWS LOCATION: [facility] DATE: 04/29/2023 INDICATION: left sided [...] Atrial Rate 137 BPM RADIOLOG Y RESULTS [place] Interval 132 ms RADIOLOG Y RESULTS QRS Duration 74 ms RADIOLO GY RESULTS QT 286 ms RADIOLOGY RESULTS QTc 431 ms RADIOLOGY RESULTS P [place] 50 degrees RADIOLOGY RESULTS R AXIS 80 degrees RADIOLOGY RESULTS T [place] 36 degrees RADIOLOGY RESULTS Interpretation ECG Sinus tachycardia Nonspecific ST abnormality Abnormal ECG When compared with ECG of 11-DEC-2019 00:11, No significant change was found Confirmed by - EMERGENCY ROOM, PHYSICIAN ([id number]), editor publications ONEL DOMINGUEZ ([id number]) on 05/02/2023 7:13:18 AM RADIOLOGY RESULTS 04/29/2023 7:20 PM CDT 05/02/2023 7:13 AM CDT Leandro Stark PA-C ECG ORDERABLES RADIOLOGY RESULTS * Chlamydia trachomatis PCR (06/13/2020) Specimen Description VAGINAL [facility] Chlamydia Trachomatis PCR Negative Negative [facility]) 06/13/2020 Narrative [facility]) - 06/13/2020 LAB RESULT OGS ELKADER Provider Outside LAB - MICRO GENERAL ORDERABLES [facility] ([facility]) [address] [place] [address], [facility] [phone] from Last 3 Months or Most Recently Relevant to Health Maintenance Care Teams Rfid Systems Engineer Relationship Specialty Start Date End Date No Ref-Primary, Physician PCP - General 04/29/23
--- OUTSIDE RECORDS SUMMARY | 2023-07-17 00:56 | XMS_ITS ---
Author Organization [facility] Address [address] [place] [address] Care Team Providers Care Sr Account Executive Name Role Phone Unavailable Unavailable Unavailable Surgery Details Not on file Complications Check Surgery Details section. Procedure Estimated Blood Loss Check Surgery Details section. Procedure Findings Check Surgery Details section. Procedure Specimens Taken Check Surgery Details section.
--- OUTSIDE RECORDS SUMMARY | 2023-07-17 00:56 | XMS_ITS | Clinical Summary ---
Author Organization [facility] Address [address] [place] [address] Care Team Providers Care Ui Developer Name Role Phone Unavailable Primary Care Provider Unavailabl e Source Comments Patient records contain information from all sites at [facility]. For routine questions regarding patient records, call [phone] during business hours, M-F 8:00 AM - 5:00 PM Central Time. Record requests for emergency care only can be directed to [phone] at any time.[facility] Allergies No known active allergies Medications Medication [...]
--- OUTSIDE RECORDS SUMMARY | 2023-07-17 00:56 | XMS_ITS | Referral Summary ---
Author Organization [facility] Address [address] [place] [address] Care Team Providers Care Peritoneal Dialysis Registered Nurse Name Role Phone Unavailable Primary Care Provider Unavailabl e Source Comments Patient records contain information from all sites at [facility]. For routine questions regarding patient records, call [phone] during business hours, M-F 8:00 AM - 5:00 PM Central Time. Record requests for emergency care only can be directed to [phone] at any time.[facility] Allergies No known active allergies Medications Medication [...]
--- OUTSIDE RECORDS SUMMARY | 2023-07-17 00:56 | XMS_ITS | Clinical Summary ---
Author Organization [facility] Address [place], [place] [address] Care Team Providers Care Fish Drier Name Role Phone Benjy Li MD Primary Care Provider [phone] Allergies No known active allergies Medications Medication [...] Encounters Date Type Department Care Team Description 07/07/2023 11:30 AM CDT Office Visit [facility] [address] [place] [address] Monster Ritter MD Fever (Body aches, sore throat, ears, congestion, headache, COVID-19 test negative) 07/07/2023 Travel 06/23/2023 Orders Only [facility] [address] [place] [address] Benjy Li MD Outside Order 06/13/2023 Telephone [facility] [address] [place] [address] Benjy Li MD Lab (No Orders) 06/09/2023 [...] Types Packs/Day Years Used Date Smoking Tobacco: Every Day Cigarettes 0.2 4 Started: 2019 Smokeless Tobacco: Never Tobacco Cessation:Ready to Q uit: Not Asked; Counseling Given: Not Answered Alcohol Use Standard Drinks/Week [...] Sign Reading Time Taken Comments Blood Pressure 94/60 07/07/2023 11:10 AM CDT Pulse 122 07/07/2023 11:10 AM CDT Temperature 37.5 ??C (99.5 ??F) 07/07/2023 11:10 AM C DT Respiratory Rate 16 11/18/2022 10:07 AM CDT Oxygen Saturation 96% 07/07/2023 11:10 AM CDT Inhaled Oxygen Concentration - - Weight 77.6 kg (171 lb) 01/11/2023 8:36 AM BOILER COVERER HELPER Height 160.7 cm (5' 3.25) 01/11/2023 8:36 AM CS T Body Mass Index 30.05 01/11/2023 8:36 AM BOILER COVERER HELPER Plan of Treatment Health Maintenance Due Date Last Done Comments Pneumococcal series for age 6-64 (1 of 2 - PCV) 2008 12/18/2003, 2002 HIV for age 15-65 2017 Chlamydia for age 16-24 2018 Hepatitis C screening for ag e 18-79 2020 COVID-19 vaccine series ( season) 2022 04/27/2021, 03/30/2021 Pap test for age 21-65 06/05/2023 Influenza for age 9-49 10/09/2023 9, 12/25/2014, 01/02/2014, Additional history exists BMI (ht and wt on same day) for age 18+ 01/12/2024 01/11/2023, 11/18/2022 Depression screening for age 12+ 03/23/2024 03/23/2023, 01/13/2023, 01/11/2023, Additional history exists Tetanus booster 05/13/2024 05/13/2014 Tdap Completed 05/13/2014 HPV series for age 9-26 Completed 12/26/19 15, 08/27/2014, 05/13/2014 Meningococcal series for age 11-21 Completed 2019, 05/13/2014 Procedures Procedure Name Priority Date/Time Associated Diagnosis Comments STREP A PCR Routine 07/07/2023 11:15 AM CDT Sore throat THROAT RAPID STREP A WITH REFLEX Routine 07/07/2023 11:15 AM CDT Sore throat from Last 3 Months Results * STREP A PCR (07/07/2023 11:15 AM CDT) GROUP A STREP Negative 07/07/2023 4:14 PM CDT [facility] Throat SPECIMEN FROM THROAT / Unknown Non-Blood / Unknown 07/07/2023 11:15 AM CDT 07/07/2023 11:27 AM CDT Monster Ritter MD MICROBIOLOGY [facility] [address] [place] [address], * THROAT RAPID STREP A WITH REFLEX (07/07/2023 11:15 AM CDT) STREP A ANTIGEN Negative 07/07/2023 11:27 AM CDT [facility] Comment:PCR to follow. Throat SPECIMEN FROM THROAT / Unknown Non-Blood / Unknown 07/07/2023 11:15 AM CDT 07/07/2023 11:18 AM CDT Monster Ritter MD MICROBIOLOGY [facility] [address] [place] [address] from Last 3 Months Care Teams Fish Drier Relationship Specialty [place] [address] [place] [address] PCP - General Family Practice 03/21/23
--- OUTSIDE RECORDS SUMMARY | 2023-07-17 00:56 | XMS_ITS | Encounter Summary ---
Author Organization [place] Address [address] [place] [address]. [place] [address] Care Team Providers Care Elevator Troubleshooter Name Role Phone Maria M Lee MD Primary Care Provider [phone] Terra Mcintyre PA-C Unavailable Fito Valencia MD Unavailable No Ref-Primary, Physician Primary Care Provider Reason for Visit * Reason Onset Date Comments MH/CD Inpatient 12/11/2019 Encounter Details Date Type Department Care Team ([facility] st Contact Info) Description 12/11/2019 Telephone [facility] Behavioral Health Intake [address] [place] [address] Generic, Behavioral Intake, MH/CD Inpatient [...] COVID-19? No / Unsure 12/10/2019 11:12 PM MILLED LUMBER GRADER documented as of this encounter Miscellaneous Notes * Telephone Encounter - Mami Almaguer - 12/11/2019 1:13 AM CST Patient cleared and ready for behavioral bed placement: Yes S: 19/F in [facility] ED for anxiety. Report [...] anxiety. Pt attends OP day treatment at [facility] and [facility] 5 days a week. Pt reports between school and OP treatment, she has a lot on her plate which exacerbates her anxiety. Pt reports not being med-compliant and that she feels something bad will happen if she takes her medications. No SI, SIB nor HI. No reported aggressive behaviors or psychotic sxs. 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 ED LUMBER GRADER documented in this encounter Plan of Treatment Not on file documented as of this encounter Visit Diagnoses Not on filedocumented in this encounter Care Teams Elevator Troubleshooter Relationship Specialty Start Date End Date Maria M Lee MD [id number] [place] [address] PCP - General Pediatrics 07/18/15 04/28/23 No Ref-Primary, Physician PCP - General 04/29/23 Terra Mcintyre PA-C [address] [place] [address] Physician Recordings Librarian Urology 06/18/20 04/28/23 Fito Valencia MD [facility] [address] [place] [address] Referring Physician Emergency Medicine 06/18/20 4 documented as of this encounter
--- OUTSIDE RECORDS SUMMARY | 2023-07-17 00:56 | XMS_ITS | Clinical Summary ---
[facility] Address [address], [place] [address] Care Team Providers Care Catering Server Name Role Phone Jp White MD Primary Care Provider [phone] Source Comments You are receiving this document as you are listed as the primary care provider,follow-up provider, or the patient has been referred to you for consultation.This is in compliance with the Medicare and[facility] Memorial Hospitalcaid EHR Incentive Program,which states Providers who transition their patient to another setting of careor provider of care or refers their patient to another provider of care shouldprovide summary care record for each transition of care or referral. [facility] Allergies No known active allergies Medications Medication [...] CDT Oxygen Saturation 98% 12/18/2018 6:59 PM DISC JOCKEY Inhaled Oxygen Concentration - - Weight - [...] 05/13/2014 MCV4 Completed 03/09/2019, 05/13/2014 Care Teams Catering Server Relationship Specialty Start Date End Date Jp White MD [facility] [address] PCP - General Family Practice 12/18/18
--- OUTSIDE RECORDS SUMMARY | 2023-07-17 00:56 | XMS_ITS | Encounter Summary ---
Author Organization [place] Address [address] [place] [address] Care Team Providers Care Implant Polisher Name Role Phone No Ref-Primary, Physician Primary [...] on filedocumented in this encounter Care Teams Implant Polisher Relationship Specialty Start Date End Date No Ref-Primary, Physician PCP - General 04/29/23 documented as of this encounter
[2023-07-17 03:31] VITALS: BP 118/95; PULSE 85; RESP 18; TEMP 36.8; O2SAT 99
[2023-07-17 04:04] LABS: PCR FLU A Negative PCR FLU A (Negative); PCR FLU B Negative PCR FLU B (Negative); PCR RSV Negative PCR RSV (Negative); SARS PCR* Negative SARS-CoV-2 (Negative)
--- NOTE | 2023-07-17 06:38 | ED.GENADULT ---
HPI - General Adult General Chief complaint: Cough Stated complaint: Has a Cough n bumps inside her mouth Time Seen by Provider: 07/17/23 03:32 Source: patient Mode of arrival: ambulatory Limitations: no limitations History of Present Illness HPI narrative: 23-year-old female presents the emergency department because of concerns of bumps in her mouth. She is eating and drinking without difficulty, no respiratory distress. She has a mild cough. She reports that she was treated for a sinus infection starting a couple weeks ago, finishing her antibiotics a couple days ago. No recent fevers but did have fevers while she was being treated for the sinus infection which has resolved. No trauma or injury. Does have some mild congestion as well. No productive cough. Feels like the cough is settling down into her chest a little bit and she thinks that she needs a chest x-ray. There is no severe shortness of breath, no nausea or vomiting, no trauma or injury. She is not immunocompromised, does not take any anticoagulants. She does have a history of what she describes is probably reactive airway disease by her description and states that she has been prescribed a inhaler in the past, has lost it and wonders about replacement. In past medical history notable for depression, home meds are sertraline and Seroquel. Nonsmoker, denies drug and alcohol use. ROS notable for the HEENT and respiratory symptoms as described above, otherwise negative times 12 systems. Related Data Home Medications ?Medication ?Instructions ?Recorded ?Confirmed quetiapine 50 mg tablet,extended 50 mg PO QPM depressive disorder 06/19/23 07/17/23 release 24 hr sertraline 100 mg tablet 100 mg PO DAILY 06/19/23 07/17/23 Allergies Allergy/AdvReac Type Severity Reaction Status Date / Time No Known Drug Allergies [facility]17[facility]23 [facility] Medical History (Updated 07/17/23 @ 06:39 by Hortencia Cardozo MD) No significant past medical history Surgical History (Updated 07/17/23 @ 00:44 by Turner Mcclain RN) No significant past surgical history Social History Smoking Status: Current every day smoker Second hand tobacco smoke exposure: Yes How often do you have a drink containing alcohol: 2-4 times a month AUDIT-C Alcohol total score: 2 Non-prescribed substance use: denies use Exam Const: Vital Signs, click to edit/add: Vital Signs - 24 hr 07/17/23 00:39 07/17/23 03:31 07/17/23 03:31 Temperature 98.2 F 98.2 F 98.2 F Pulse Rate [Right Pulse Oximeter] 91 85 85 Respiratory Rate 18 18 18 Blood Pressure [Le ft Upper Arm] 125/72 118/95 H 118/95 H Pulse Oximetry 99 99 Oxygen Delivery Me thod Room Air Room Air Documenting provider has reviewed patient's vital signs: yes Common normals: no apparent distress General appearance: cooperative and well kempt HENMT: Common normals: normocephalic and TM's normal bilaterally Head and scalp: normocephalic Tympanic membrane: TM's normal bilaterally Other: Mild clear mucus rhinorrhea. Oropharynx with acyanotic lips, moist membranes. Typical viral blistery pattern of herpangina on pharyngeal chavez, uvula and somewhat on inner lip and 1 under the tongue. Eye: Common normals: conjunctivae normal General eye: normal appearance of both eyes Conjunctiva: conjunctiva(e) normal Neck & C-Spine: Common normals: full ROM and no lymphadenopathy Resp: Common normals: normal respiratory effort, no use of accessory muscles and clear to auscultation bilaterally Effort & inspection: able to speak in complete sentences Auscultation: clear to auscultation bilaterally Cardio: Common normals: regular rate, regular rhythm, S1 normal heart sound, S2 normal heart sound and no murmurs Rate: regular rate Rhythm: regular rhythm Heart sounds: S1 normal and S2 normal Psych: Common normals: thought process normal Appearance: well kempt Attitude: engaged Mood and affect: euthymic mood Thought process: normal thought process Insight: insight good Judgement: judgment good Skin: Common normals: no rashes or lesions noted General skin exam: no rashes or lesions noted Course Course ED Course: Mild URI, normal oxygen sats, no respiratory distress. Reassuring exam. Viral swabs are negative. Typical viral pattern of stomatitis with no features of severe respiratory distress. Patient counseled on the congestion. She is not wheezing. I do not think steroids would be helpful. No indications for antibiotics. Will refill her inhaler and counseled on typical benign course of these aphthous ulcers which will resolve over the next 10 days. Complications or very rare but alarm symptoms were reviewed. Okay to use Tylenol and/or ibuprofen as needed for discomfort. She verbalizes understanding and agreement. See discharge instructions Vital Signs Vital signs: Initial Vital Signs Temperature 98.2 F 07/17/23 00:39 Temperature Source Temporal Artery Scan 07/17/23 00:39 Pulse Rate 91 07/17/23 00:39 Respiratory Rate 18 07/17/23 00:39 Blood Pressure 125/72 07/17/23 00:39 Blood Pressure Mean 89 07/17/23 00:39 Blood Pressure Position Sitting 07/17/23 00:39 Pulse Oximetry 99 07/17/23 00:39 Oxygen Delivery Method Room Air 07/17/23 00:39 Vital Signs Temperature 98.2 F 07/17/23 00:39 Pulse Rate 91 07/17/23 00:39 Respiratory Rate 18 07/17/23 00:39 Blood Pressure 125/72 07/17/23 00:39 Pulse Oximetry 99 07/17/23 00:39 Oxygen Delivery Method Room Air 07/17/23 00:39 Temperature 98.2 F 07/17/23 03:31 Pulse Rate 85 07/17/23 03:31 Respiratory Rate 18 07/17/23 03:31 Blood Pressure 118/95 H 07/17/23 03:31 Pulse Oximetry 99 07/17/23 03:31 Oxygen Delivery Method Room Air 07/17/23 03:31 Medical Decision Making Lab Data Labs: Lab Results 07/17/23 Range/Units 00:20 SARS-CoV-2 (PCR) Negative SARS-CoV-2 (Negative) Influenza Type A (PCR) Negative PCR FLU A (Negative) Influenza Type B (PCR) Negative PCR FLU B (Negative) RSV (PCR) Negative PCR RSV (Negative) Discharge Plan Discharge Clinical Impression: Herpangina Patient Disposition: Home, Self-Care Condition: Stable Instructions: Cold Symptoms (ED) Additional Instructions: Discharge instructions on Abida Sridevi 07/17/23 Your oxygen levels and respiratory exam are great.? I do not recommend a chest x-ray as radiation to your chest can be dangerous when it will not change medical management.? You have some mild upper chest congestion that is consistent with a viral upper respiratory infection/bronchitis.? This is not caused by bacteria and will not benefit from antibiotics.? There are no signs of wheezing or respiratory distress.? The blisters in your mouth tell me which virus is causing your respiratory symptoms, an interesting virus called herpangina.? The blisters will last about 10 days as will the cough and congestion.? You should come to the emergency department if you have severe shortness of breath to the point where you cannot walk from your car to the building, high fevers over 100.4 for more than 48 hours, severe weakness or other alarming symptoms.? Your symptoms will gradually run their course over the next 10 days.? I do think that your chest congestion would improve with the use of an albuterol inhaler.? I will send a new 1 to your pharmacy.? You may use this 2 puffs up to every 2 hours as needed to help you clear that congestion.? It is also okay to use [id number] Mucinex to help with congestion.? It is okay to take Tylenol and/or ibuprofen for the sore throat and mouth tenderness associated with the blisters.? These are as contagious as any other simple respiratory virus and do not need any special attention. Activity Level: No Restrictions Discharge Diet: Regular Prescriptions: No Action sertraline 100 mg tablet 100 mg PO DAILY quetiapine 50 mg tablet extended release 24 hr 50 mg PO QPM Follow Up/Referrals: Provider,Not a Local [Primary Care Provider] -
== END 2023-07-17 03:32 | disposition home or self-care (01) ==
PROVIDERS: Emergency Provider Family Medicine
DX: R05.9 Cough, unspecified (principal); B08.5 Enteroviral vesicular pharyngitis
CPT/HCPCS: 87631; 99283

== ENCOUNTER 2024-02-24 23:28 | Emergency (ER) | payer BC, SELFPAY ==
--- OUTSIDE RECORDS SUMMARY | 2024-02-24 23:30 | XMS_ITS | Clinical Summary ---
[facility] Address [address], [place] [address] Care Team Providers Care Wool Dyer Name Role Phone Jp White MD Primary Care Provider [phone] Source Comments You are receiving this document as you are listed as the primary care provider,follow-up provider, or the patient has been referred to you for consultation.This is in compliance with the Medicare and[facility] Hospitalcaid EHR Incentive Program,which states Providers who transition their patient to another setting of careor provider of care or refers their patient to another provider of care shouldprovide summary care record for each transition of care or referral. [facility] Allergies No known active allergies Medications Medication [...] 105 06/20/2020 9:25 AM CDT Temperature 36.9 C (98.5 F) 12/18/2018 6:59 PM MACHINE LOAD CLERK Respiratory Rate 14 06/20/2020 9:25 AM CDT Oxygen Saturation 98% 12/18/2018 6:59 PM MACHINE LOAD CLERK Inhaled Oxygen Concentration - - Weight - [...] Chlamydia 06/13/2021 06/13/2020 COVID-19 Vaccine ( season) 2023 Influenza (#1) 2023 11/27/2018, 11/07, 12/25/2014, Additional history exists DTaP/Tdap/Td (5 - Tdap) 05/13/2024 05/14/19 15, 06/26/2007, 12/18/2003, Additional history exists Zoster/Shingles (1 of 2) 2052 Hib Completed 12/18/2003 Pneumococcal Aged Out 12/18/2003, 2002 No lo nger eligible based on patient's age to complete this topic HepA Completed 12/26/2007, 06/26/2007 HPV Vaccine Completed 12/25/2014, 08/08, 05/13/2014 MCV4 Completed 03/09/2019, 05/13/2014 Care Teams Wool Dyer Relationship Specialty Start Date End Date Jp White MD [facility] [address] PCP - General Family Practice 12/18/18
--- OUTSIDE RECORDS SUMMARY | 2024-02-24 23:30 | XMS_ITS | Encounter Summary ---
Author Organization [facility] Address [address] [place] [address]. [place] [address] Care Team Providers Care Salvage Machine Operator Name Role Phone Maria M Lee MD Primary Care Provider [phone] Terra Mcintyre PA-C Unavailable Fito Valencia MD Unavailable No Ref-Primary, Physician Primary Care Provider Reason for Visit * Reason Onset Date Comments MH/CD Inpatient 12/11/2019 Encounter Details Date Type Department Care Team ([facility] st Contact Info) Description 12/11/2019 Telephone [facility] Behavioral Health Intake [address] [place] [address] Generic, Behavioral Intake, MH/CD Inpatient Social History Tobacco Use Types Packs/Day Years Used Date Smoking Tobacco: Never Assessed Comments No Sex and Gender Information Value Date Recorded Sex Assigned at Not on file Legal Sex Female 11:14 PM CDT Gender Identity Not on file Sexual Orientation Not on file COVID-19 Exposure Response Date Recorded In the last month, have you been in contact with someone who was confirmed or suspected to have Coronavirus / COVID-19? No / Unsure 12/10/2019 11:12 PM SIGNAL MANAGER documented as of this encounter Miscellaneous Notes * Telephone Encounter - Tearaeann Mami Paul - 12/11/2019 1:13 AM CST Patient cleared and ready for behavioral bed placement: Yes S: 19/F in [facility] ED for anxiety. Report from LAY [...] anxiety. Pt attends OP day treatment at [facility] and [facility] 5 days a week. Pt reports between school and OP treatment, she has a lot on her plate which exacerbates her anxiety. Pt reports not being med-compliant and that she feels something bad will happen if she takes her medications. No SI, SIB nor HI. No reported aggressive behaviors or psychotic sxs. Per materials development engineer, pt is calm, pleasant and cooperative in [...] MH placement work list at this time. AL MANAGER documented in this encounter Plan of Treatment Not on file documented as of this encounter Visit Diagnoses Not on filedocumented in this encounter Care Teams Salvage Machine Operator Relationship Specialty Start Date End Date Maria M Lee MD [facility] [address] [place] [address] PCP - General Pediatrics 07/18/15 04/28/23 No Ref-Primary, Physician PCP - General 04/29/23 Terra Mcintyre PA-C [address] [place], [place] [address] Physician Sales Outfitter Urology 06/18/20 04/28/23 Fito Valencia MD [facility] [address] [place], [place] [address] Referring Physician Emergency Medicine 06/18/20 4 documented as of this encounter
--- OUTSIDE RECORDS SUMMARY | 2024-02-24 23:30 | XMS_ITS | Clinical Summary ---
Author Organization [facility] Address [address] [place] [address] Care Team Providers Care Keypunch Operator Name Role Phone No Ref-Primary, Physician Primary Care Provider Allergies No known active allergies Medications ibuprofen (ADVIL,MOTRIN) 100 MG/5ML suspension Take 20 [...] School Help Needed Not on file 10/29 Comments No Sex and Gender Information Value Date Recorded Sex Assigned at Not on file Legal Sex Female 11:14 PM CDT Gender Identity Not on file Sexual Orientation Not on file Last Filed Vital Signs Vital Sign Reading Time Taken Comments Blood Pressure 125/86 04/29/2023 8:05 PM CDT Pulse 105 04/29/2023 8:05 PM CDT Temperature 37.6 C (99.6 F) 04/29/2023 7:11 PM CDT Respiratory Rate 18 04/29/2023 7:11 PM CDT [...] 2002 ANNUAL REVIEW OF HM ORDERS 2002 HEPATITIS B IMMUNIZATION (2 of 3 - 3-dose series) 01/15/2004 12/18/2003 YEARLY PREVENTIVE VISIT 2005 HIV SCREENING 2017 MENINGITIS B IMMUNIZATION (1 of 2 - Standard) 2018 HEPATITIS C SCREENING 2020 CHLAMYDIA SCREENING 06/13/2021 06/13/2020 PAP 06/05/2023 COVID-19 Vaccine (3 - season) 2023 04/27/2021, 03/30/2021 INFLUENZA VACCINE (#1) 2023 9, 11/24/2015, 12/25/2014, Additional history exists PHQ-2 (once per calendar year) 2024 DTAP/TDAP/TD IMMUNIZATION (5 - Td or Tdap) 05/13/2024 05/13/2014, 06/26/2007, 12/18/2003, Additional history exists RSV VACCINE (1 - 1-dose 75+ series) 2077 Pneumococcal Vaccine: Pediatrics (0 to 5 Years) and At-Risk Patients (6 to 49 Years) Aged Out 12/18/2003, 2002 No longer eligibl e based on patient's age to complete this topic HPV IMMUNIZATION Completed 12/25/2014, , 05/13/2014 MENINGITIS IMMUNIZATION Completed 03/09/2019, 05/13 RSV MONOCLONAL ANTIBODY Aged Out No l onger eligible based on patient's age to complete this topic Procedures Procedure Name Priority Date/Time Associated Diagnosis Comments CHLAMYDIA TRACHOMATIS PCR Routine 06/13/2020 from Last 3 Months or Most Recently Relevant to Health Maintenance Results * Chlamydia trachomatis PCR (06/13/2020) Specimen Description [facility]AL [facility] ([facility]) Chlamydia Trachomatis PCR Negative Negative [facility] ([facility]) 06/13/2020 Narrative [facility] ([facility]) - 06/13/2020 LAB RESULT [facility] [place] us Provider Outside LAB - MICRO GENERAL ORDERABLES Final Result [facility] ([facility]) [address] [place] [address], [facility] [[email or web address]] [phone] from Last 3 Months or Most Recently Relevant to Health Maintenance Care Teams Keypunch Operator Relationship Specialty Start Date End Date No Ref-Primary, Physician PCP - General 04/29/23
--- OUTSIDE RECORDS SUMMARY | 2024-02-24 23:30 | XMS_ITS | Referral Summary ---
Author Organization [facility] Address [address] [place] [address] Care Team Providers Care Photo Printer Name Role Phone No Ref-Primary, Physician Primary [...] [place] ([facility]) - 06/13/2020 LAB RESULT [facility] [place] us Provider Outside LAB - MICRO GENERAL ORDERABLES Final Result [facility] ([facility]) [address] [place] [address], [facility] [phone] from Last 3 Months or Most Recently Relevant to Health Maintenance Care Teams Photo Printer Relationship Specialty Start Date End Date No Ref-Primary, Physician PCP - General 04/29/23
--- OUTSIDE RECORDS SUMMARY | 2024-02-24 23:30 | XMS_ITS | Continuity of Care Document ---
Author Name [facility] User [facility] Address Unknown Organization Unknown Address Unknown Procedures FILTER APPLIED:Only known Procedures with Onset Date within the last 5 years Procedure Date Procedure Provider Additional Inform ation Status EMERGENCY DEPT VISIT MOD MDM (18134) Completed CT NECK SPINE W/O DYE (89776) Completed CT HEAD/BRAIN W/O DYE (55814) Completed Encounters FILTER APPLIED:Only known Encounters with Admission Date within the last 5 years Encounter Location Admission Discharge Billing Code Fund Development Manager Tami christine Emergency [facility] Emergency Yoav Morejon
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
[2024-02-24 23:31] VITALS: BP 125/82; PULSE 116; RESP 16; TEMP 36.2; O2SAT 98; BMI 23.0
--- NOTE | 2024-02-25 01:09 | ED_ITS ---
HPI - Skin/Abscess/Foreign Bdy General Date Seen: 02/25/24 Chief complaint: Skin/Abscess/Foreign Body Stated complaint: Has a bump on ear - R side Time Seen by Provider: 02/25/24 01:01 Source: patient Mode of arrival: ambulatory Limitations: no limitations History of Present Illness HPI narrative: Patient is a 23-year-old previously healthy the lady who presents here with swelling behind her right ear, she has noticed this today, and she is worried that she might have developed cancer, she got a piercing done a few days ago, in her right ear. She denies no fevers chills or sweats she was knots scratched by a cat. And otherwise feels fine. She does have a history of marked anxiety. Related Data Home Medications ?Medication ?Instructions ?Recorded ?Confirmed quetiapine 50 mg tablet,extended 50 mg PO QPM depressive disorder 06/19/23 02/24/24 release 24 hr lorazepam 0.5 mg tablet 0.5 mg PO 3XD PRN panic attack 02/24/24 02/24/24 Allergies Allergy/AdvReac Type Severity Reaction Status Date / Time No Known Drug Allergies Allergy Verified 07/17/23 00:41 Review of Systems Status of ROS: Reports: 6 or more systems reviewed and unremarkable except as noted in History and below [facility] Medical History No significant past medical history Surgical History No significant past surgical history Social History Smoking Status: Current every day smoker Second hand tobacco smoke exposure: Yes How often do you have a drink containing alcohol: 2-4 times a month AUDIT-C Alcohol total score: 2 Non-prescribed substance use: denies use Exam Narrative: Exam Narrative: On examination she has multiple piercings in her right ear, she has some reactive lymph nodes the come down her right anterior chain, this is what she is feeling, no evidence of any pointing of these lymph nodes there is no masses no abscess noted, her TM external canal is otherwise normal. She does have a little bit of acne across her face. No significant lymph nodes are noted on the left side. Const: Vital Signs, click to edit/add: Vital Signs - 24 hr 02/24/24 23:31 Temperature 97.2 F L Pulse Rate [Pulse Oximeter] 116 H Respiratory Rate 16 Blood Pressure [Ri ght Upper Arm] 125/82 Pulse Oximetry 98 Oxygen Delivery Me thod Room Air Documenting provider has reviewed patient's vital signs: yes Course Vital Signs Vital signs: Initial Vital Signs Temperature 97.2 F L 02/24/24 23:31 Temperature Source Temporal Artery Scan 02/24/24 23:31 Pulse Rate 116 H 02/24/24 23:31 Respiratory Rate 16 02/24/24 23:31 Blood Pressure 125/82 02/24/24 23:31 Blood Pressure Mean 96 02/24/24 23:31 Blood Pressure Position Sitting 02/24/24 23:31 Pulse Oximetry 98 02/24/24 23:31 Oxygen Delivery Method Room Air 02/24/24 23:31 Vital Signs Temperature 97.2 F L 02/24/24 23:31 Pulse Rate 116 H 02/24/24 23:31 Respiratory Rate 16 02/24/24 23:31 Blood Pressure 125/82 02/24/24 23:31 Pulse Oximetry 98 02/24/24 23:31 Oxygen Delivery Method Room Air 02/24/24 23:31 Temperature 97.2 F L 02/24/24 23:31 Pulse Rate 116 H 02/24/24 23:31 Respiratory Rate 16 02/24/24 23:31 Blood Pressure 125/82 02/24/24 23:31 Pulse Oximetry 98 02/24/24 23:31 Oxygen Delivery Method Room Air 02/24/24 23:31 MDM - Skin/Abscess/Foreign Bdy MDM Narrative Medical decision making narrative: I gave her reassurance, she should put some bacitracin on there, more than anything I told her she did not have cancer. Discharge Plan Discharge Clinical Impression: Lymph node symptom Patient Disposition: Home, Self-Care Condition: Stable Additional Instructions: Home, rest reassurance given, I would put bacitracin over worry got your ear piercing for the next week to 10 days, apply twice a day, the nurse will give you some samples. Return here if increasing redness swelling, fevers chills or other issues Activity Level: Light activity Prescriptions: No Action quetiapine 50 mg tablet extended release 24 hr 50 mg PO QPM lorazepam 0.5 mg tablet 0.5 mg PO 3XD PRN (Reason: panic attack) Follow Up/Referrals: Provider,Not a Local [Primary Care Provider] - Stand Alone Forms: Alignment Healthcare Info Instructions
--- OUTSIDE RECORDS SUMMARY | 2024-02-25 01:19 | XMS_ITS | Clinical Summary ---
Author Organization [place] Address [address] [place] [address] Care Team Providers Care Instrument Shop Supervisor Name Role Phone No Ref-Primary, Physician Primary [...] MICRO GENERAL ORDERABLES Final Result [facility] ([facility]) [address] [place] [address], [facility] [phone] from Last 3 Months or Most Recently Relevant to Health Maintenance Care Teams Instrument Shop Supervisor Relationship Specialty Start Date End Date No Ref-Primary, Physician PCP - General 04/29/23
--- OUTSIDE RECORDS SUMMARY | 2024-02-25 01:19 | XMS_ITS | Referral Summary ---
Author Organization [facility] Address [address] [place] [address] Care Team Providers Care White Mixing Operator Name Role Phone No Ref-Primary, Physician [...] [place] ([facility]) - 06/13/2020 LAB RESULT O[facility] [place] us Provider Outside LAB - MICRO GENERAL ORDERABLES Final Result [facility] ([facility]) [address] [place] [address], [facility] [phone] from Last 3 Months or Most Recently Relevant to Health Maintenance Care Teams White Mixing Operator Relationship Specialty Start Date End Date No Ref-Primary, Physician PCP - General 04/29/23
--- OUTSIDE RECORDS SUMMARY | 2024-02-25 01:19 | XMS_ITS | Encounter Summary ---
Author Organization [place] Address [address] [place] [address]. [place] [address] Care Team Providers Care Cone Baker Machine Name Role Phone Maria M Lee MD Primary Care Provider [phone] Terra Mcintyre PA-C Unavailable Fito Valencia MD Unavailable No Ref-Primary, Physician Primary Care Provider Reason for Visit * Reason Onset Date Comments MH/CD Inpatient 12/11/2019 Encounter Details Date Type Department Care Team ([facility] st Contact Info) Description 12/11/2019 Telephone [facility] Behavioral Health Intake [address] [place] [address] Generic, Behavioral Intake, MH/CD Inpatient [...] COVID-19? No / Unsure 12/10/2019 11:12 PM KETTLE GIRL documented as of this encounter Miscellaneous Notes * Telephone Encounter - Tearaeann Mami Paul - 12/11/2019 1:13 AM CST Patient cleared and ready for behavioral bed placement: Yes S: 19/F in [facility] ED for anxiety. Report from LAY [...] Pt attends OP day treatment at [facility] and [facility] 5 days a week. Pt reports between school and OP treatment, she has a lot on her plate which exacerbates her anxiety. Pt reports not being med-compliant and that she feels something bad will happen if she takes her medications. No SI, SIB nor HI. No reported aggressive behaviors or psychotic sxs. Per real estate assessor, pt is calm, pleasant and cooperative in [...] MH placement work list at this time. LE GIRL documented in this encounter Plan of Treatment Not on file documented as of this encounter Visit Diagnoses Not on filedocumented in this encounter Care Teams Cone Baker Machine Relationship Specialty Start Date End Date Maria M Lee MD [facility] [address] [place] [address] PCP - General Pediatrics 07/18/15 04/28/23 No Ref-Primary, Physician PCP - General 04/29/23 Terra Mcintyre PA-C [address] [place], [place] [address] Physician Materials Handling Coordinator Urology 06/18/20 04/28/23 Fito Valencia MD [facility] [address] [place], [place] [address] Referring Physician Emergency Medicine 06/18/20 4 documented as of this encounter
--- OUTSIDE RECORDS SUMMARY | 2024-02-25 01:19 | XMS_ITS | Clinical Summary ---
Author Organization [facility] Address [place], [place] [address] Care Team Providers Care Form Designer Name Role Phone Benjy Li MD Primary Care Provider [phone] Allergies No known active allergies Medications tretinoin [...] st Contact Info) Description 02/29/2024 10:25 AM WOOD SHOP TEACHER Office Visit [facility] [address] [place] [address] [place] [id number] [place], [place] [id number] Health Maintenance Due Date Last Done Comments [...] 4TH GEN NON-REACT DANIEL NON-REACT DANIEL [facility] Comment: HIV-1 antigen and HIV-1/HIV-2 antibodies were [...] purpose. For additional information please refer to http://[employer]/faq/MQT327 (This link is being provided for informational/ educational purposes only.) The performance of this assay has not been clinically validated in patients less than 2 years old. Blood BLOOD SPECIMEN / Unknown 11/08/2023 1:34 PM CDT 11/08/2023 1:35 PM CDT us Chidi Grewal MD SEND OUTS Final Result [employer] [facility] [address] [place] [address], [facility] [address] [place] [address] * ANTI HCV (11/08/2023 1:34 PM CDT) HEPATITIS C ANTIBODY NON-REACTI VE NON-REACT DANIEL [facility] Comment: HCV antibody was non-reactive. There is no laboratory evidence of HCV infection. In most cases, no further action is required. However, if recent HCV exposure is suspected, a test for HCV RNA (test code 37734) is suggested. For additional information please refer to http://[employer]/faq/JQN71w1 (This link is being provided for informational/ educational purposes only.) Blood BLOOD SPECIMEN / Unknown 11/08/2023 1:34 PM CDT 11/08/2023 1:35 PM CDT us Chidi Grewal MD SEND OUTS Final Result [facility] [address] [place] [address], [place] [phone] [facility] [address] [place] [address] * GC CHLAMYDIA TRACH PROBE (09/08/2023 9:15 AM CDT) CHLAMYDIA PROBE Negative 10:23 PM CDT [facility] N GONORRHOEAE PROBE Negative 09/08/2023 10:23 PM CDT [facility] Other URINE SPECIMEN / Unknown Non-Blood / Unknown 09/08/2023 9:15 AM CDT 09/08/2023 9:23 AM CDT us Tisha Meek MD MICROBIOLOGY Fin al Result [facility] [address] [place] [address], from Last 3 Months or Most Recently Relevant to Health Maintenance Insurance [facility] Care Teams Form Designer Relationship Specialty [place] [id number] [place] [address] PCP - General Family Practice 03/21/23
--- OUTSIDE RECORDS SUMMARY | 2024-02-25 01:19 | XMS_ITS | Continuity of Care Document ---
Author Name [facility] Address Unknown Organization Unknown Address Unknown Procedures FILTER APPLIED:Only known Procedures with Onset Date within the last 5 years Procedure Date Procedure Provider Additional Inform ation Status EMERGENCY DEPT VISIT MOD MDM (65276) Completed CT NECK SPINE W/O DYE (00625) Completed CT HEAD/BRAIN W/O DYE (97522) Completed Encounters FILTER APPLIED:Only known Encounters with Admission Date within the last 5 years Encounter Location Admission Discharge Billing Code Hoop Punch Operator Helper Tami christine Emergency [facility] Emergency Yoav Morejon
--- OUTSIDE RECORDS SUMMARY | 2024-02-25 01:19 | XMS_ITS | Clinical Summary ---
Author Organization [facility] Address [address], [place] [address] Care Team Providers Care Research Intern Name Role Phone Jp White MD Primary Care Provider + [phone] Source Comments You are receiving this document as you are listed as the primary care provider,follow-up provider, or the patient has been referred to you for consultation.This is in compliance with the Medicare and[facility] EHR Incentive Program,which states Providers who transition their patient to another setting of careor provider of care or refers their patient to another provider of care shouldprovide summary care record for each transition of care or referral. [facility] Allergies No known active allergies Medications Medication [...] 36.9 C (98.5 F) 12/18/2018 6:59 PM SCREW MACHINE HAND Respiratory Rate 14 06/20/2020 9:25 AM CDT Oxygen Saturation 98% 12/18/2018 6:59 PM SCREW MACHINE HAND Inhaled Oxygen Concentration - - Weight - [...] 05/13/2014 MCV4 Completed 03/09/2019, 05/13/2014 Care Teams Research Intern Relationship Specialty Start Date End Date Jp White MD [facility] [address] PCP - General Family Practice 12/18/18
== END 2024-02-25 02:07 | disposition home or self-care (01) ==
PROVIDERS: Emergency Provider Family Medicine
DX: R59.0 Localized enlarged lymph nodes (principal)
CPT/HCPCS: 99282; 99283

== ENCOUNTER 2024-05-26 03:44 | Emergency (ER) | payer BC, SELFPAY ==
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
--- OUTSIDE RECORDS SUMMARY | 2024-05-26 03:47 | XMS_ITS | Clinical Summary ---
Author Organization [place] Address [address] [place] [address] Care Team Providers Care Manager Furniture Name Role Phone No Ref-Primary, Physician Primary [...] 05/13/2024 05/13/2014, 06/26/2007, 12/18/2003, Additional history exists ZOSTER IMMUNIZATION (1 of 2) 2052 Pneumococcal Vaccine: Pediatrics (0 to 5 Years) and At-Risk Patients (6 to 49 Years) Aged Out 12/18/2003, 2002 No longer eligibl e based on patient's age to complete this topic HPV IMMUNIZATION Completed 12/25/2014, , 05/13/2014 MENINGITIS IMMUNIZATION Completed 03/09/2019, 05/13 Procedures Procedure Name Priority Date/Time Associated Diagnosis [...] LAB - MICRO GENERAL ORDERABLES Final Result Performing Organization Address [facility]/State/ZIP Co de Phone Number [facility]COCL [facility] ([facility]) [address] [place] [address], [facility] [phone] from Last 3 Months or Most Recently Relevant to Health Maintenance Care Teams Manager Furniture Relationship Specialty Start Date End Date No Ref-Primary, Physician PCP - General 04/29/23
--- OUTSIDE RECORDS SUMMARY | 2024-05-26 03:47 | XMS_ITS | Clinical Summary ---
[facility] Organization [facility] Address [address], [place] [address] Care Team Providers Care Senior Ux Designer Name Role Phone Jp White MD Primary Care Provider [phone] Source Comments You are receiving this document as you are listed as the primary care provider,follow-up provider, or the patient has been referred to you for consultation.This is in compliance with the Medicare and[facility] EHR Incentive Program,which states Providers who transition their patient to another setting of careor provider of care or refers their patient to another provider of care shouldprovide summary care record for each transition of care or referral. [facility] Allergies No known active allergies Medications oxyCODONE (ROXICODONE) 5 MG immediate release tabletIndication s:Ankle fracture, right, closed, with routine healing, subsequent encounter Take 5 mg by mouth every 4 hours as needed for Pain. Active acetaminophen (TYLENOL) 325 MG tabletIndication s:Ankle fracture, right, closed, with routine healing, subsequent encounter Take 325-650 mg by mouth every 4 hours as needed for Pain. Active hydrOXYzine HCl (ATARAX) 25 MG tablet Take 1-2 Tablets by mouth every 6 hours as needed for Itching. 20 Tablet 9 Active phenazopyridine (PYRIDIUM) 200 MG tablet Take 200 mg by mouth three times a day as needed. 1 Active ibuprofen (MOTRIN) 200 MG tablet Take 200-400 mg by mouth every 4 hours as needed for Pain. Active compounded diazePAM vaginal suppositoryIndic ations:Pelvic floor dysfunction in female Insert 5 mg vaginally daily at bedtime. 90 Each Active Active Problems Problem Noted Date Diagnosed Date Ankle fracture, right 07/28/2016 Social History Tobacco Use Types Packs/Day Years Used Date Smoking Tobacco: Never Smokeless Tobacco: Never Alcohol Use Standard Drinks/Week Comments No 0 (1 standard drink = 0.6 oz pur e alcohol) Comments Unknown Sex and Gender Information Value Date Recorded Sex Assigned at Not on file Legal Sex Female 7:49 PM CDT Gender Identity Not on file Sexual Orientation Not on file Last Filed Vital Signs Vital Sign Reading Time Taken Comments Blood Pressure 102/72 06/20/2020 9:25 AM CDT Pulse 105 06/20/2020 9:25 AM CDT Temperature 36.9 C (98.5 F) 12/18/2018 6:59 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 Respiratory Rate 14 06/20/2020 9:25 AM CDT Oxygen Saturation 98% 12/18/2018 6:59 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 Inhaled Oxygen Concentration - - Weight - - Height - - Body Mass Index - - Plan of Treatment Health Maintenance Due Date Last Done Comments Cervical Cancer Screening Due 2002 Hep C Screening (Preventive Services) 2002 MenB Immunization Discussion 2002 IPV (Polio) Vaccine (3 of 3 - 4-dose series) 12/27/2007 06/26/2007, 12/18/2003 HIV Screening (Preventive Services) 2018 Adult Preventive Visit 2020 HepB Vaccine (1) 2021 Chlamydia 06/13/2021 06/13/2020 COVID-19 Vaccine (1 - season) 2023 Influenza Vaccine (#1) 2023 9, 11/24/2015, 12/25/2014, Additional history exists DTaP/Tdap/Td Vaccine (5 - Tdap) 05/13/2024 05/13/2014, 06/26/2007, 12/18/2003, Additional history exists Zoster/Shingles Vaccine (1 of 2) 2052 Hib Vaccine Completed 12/18/2003 Pneumococcal Vaccine Aged Out 12/18/2003, 12/06/19 03 No longer eligible based on patient's age to complete this topic HepA Vaccine Completed 12/26/2007, 06/26/2007 HPV Vaccine Completed 12/25/2014, 08/08, 05/13/2014 MCV4 Vaccine Completed 03/09/2019, 05/13/[id number] [place] [id number] [employer] INSURANCE [facility] Care Teams Senior Ux Designer Relationship Specialty Start Date End Date Jp White MD [facility] [address] PCP - General Family Practice 12/18/18
--- OUTSIDE RECORDS SUMMARY | 2024-05-26 03:47 | XMS_ITS | Encounter Summary ---
Author Organization [facility] Address [address] [place] [address]. [place] [address] Care Team Providers Care Third Steel Pourer Name Role Phone Maria M Lee MD Primary Care Provider [phone] Terra Mcintyre PA-C Unavailable Fito Valencia MD Unavailable No Ref-Primary, Physician Primary Care Provider Reason for Visit * Reason Onset Date Comments MH/CD Inpatient 12/11/2019 Encounter Details Date Type Department Care Team ([facility] Contact Info) Description 12/11/2019 Telephone [facility] Health Intake [address] [place] [address] Generic, Behavioral Intake, MH/CD Inpatient [...] have Coronavirus / COVID-19? No / Unsure 05/13/2021 11:24 AM CDT documented as of this encounter Miscellaneous Notes * Telephone Encounter - Tearaeann Mami Paul - 12/11/2019 1:13 AM CST Patient cleared and ready for behavioral bed placement: Yes S: 19/F in [facility] ED for anxiety. Report from [facility] [...] anxiety. Pt attends OP day treatment at [facility] 5 days a week. Pt reports between school and OP treatment, she has a lot on her plate which exacerbates her anxiety. Pt reports not being med-compliant and that she feels something bad will happen if she takes her medications. No SI, SIB nor HI. No reported aggressive behaviors or psychotic sxs. Per secure software assessor, pt is calm, pleasant and cooperative [...] MH placement work list at this time. K [employer] MASON documented in this encounter Plan of Treatment Not on file documented as of this encounter Visit Diagnoses Not on filedocumented in this encounter Care Teams Third Steel Pourer Relationship Specialty Start Date End Date Maria M Lee MD [facility] [address] [place] [address] PCP - General Pediatrics 07/18/15 04/28/23 No Ref-Primary, Physician PCP - General 04/29/23 Terra Mcintyre PA-C [address] [place] [address] Physician Pet Caregiver Urology 06/18/20 04/28/23 Fito Valencia MD [facility] [address] [place] [address] Referring Physician Emergency Medicine 06/18/20 3 4 documented as of this encounter
[2024-05-26 03:53] VITALS: BP 127/86; PULSE 114; RESP 20; TEMP 36.6; O2SAT 98; BMI 23.0
--- NOTE | 2024-05-26 03:59 | ED.GENADULT ---
HPI - General Adult General Time Seen by Provider: 03:59 Date Seen: 06/13/24 Chief complaint: Unspecified Complaint, Adult Stated complaint: breast pain Time Seen by Provider: 05/26/24 03:52 Source: patient and RN notes reviewed Mode of arrival: ambulatory Limitations: no limitations History of Present Illness HPI narrative: This 23-year-old female is presenting to the ER with bilateral sense of breast heaviness and discomfort. She thought maybe or breast cancer could be possible. Her mother has a history of breast cancer. She just completed a normal menstrual cycle yesterday. This was a normal period for her. She does have some irregularity to her cycles, thinks she probably has polycystic ovarian syndrome but is never been diagnosed. She took 600 mg of ibuprofen around 11:00 p.m. she has noted no leakage or drainage from either of her nipples. Related Data Home Medications ?Medication ?Instructions ?Recorded ?Confirmed quetiapine 50 mg tablet,extended 50 mg PO QPM depressive disorder 06/19/23 05/26/24 release 24 hr lorazepam 0.5 mg tablet 0.5 mg PO 3XD PRN panic attack 02/24/24 05/26/24 ibuprofen 600 mg tablet 1,200 mg PO BID 05/26/24 05/26/24 Allergies Allergy/AdvReac Type Severity Reaction Status Date / Time No Known Drug Allergies Allergy Verified 05/26/24 03:59 Review of Systems Narrative: As per HPI. PFS PFS Medical History No significant past medical history Surgical History No significant past surgical history Social History Smoking Status: Current every day smoker Do you use any of these nicotine containing products: None Second hand tobacco smoke exposure: Yes How often do you have a drink containing alcohol: never How often do you have six or more drinks on one occasion: Never AUDIT-C Alcohol total score: 0 Non-prescribed substance use: denies use service: No Exam Const: Vital Signs, click to edit/add: Vital Signs - 24 hr 05/26/24 03:53 Temperature 97.8 F Pulse Rate [Left P ulse Oximeter] 114 H Respiratory Rate 20 Blood Pressure [Ri ght Upper Arm] 127/86 Pulse Oximetry 98 Oxygen Delivery Me thod Room Air This 23-year-old female is alert, interactive, no apparent distress. Speech is normal. Vitals are stable. Breasts are symmetric in appearance, no erythema, no skin changes. Nipples appear normal, no nipple discharge noted. She has no palpable nodules or masses in either breast. Can feel some of the glandular tissue and palpation of her breasts but certainly no nodules or masses, no axillary adenopathy or masses. Documenting provider has reviewed patient's vital signs: yes Course Course ED Course: Reviewed mastalgia with patient. Reviewed that I do not feel any discrete nodules or masses at this time. We do not do routine breast ultrasonography or mammographies out of the ER. Some less concerning findings are her age, bilateral mastalgia, just finished her menstrual cycle yesterday. We have discussed observation and follow-up in clinic if ongoing symptoms. She will discharge to home. Vital Signs Vital signs: Initial Vital Signs Temperature 97.8 F 05/26/24 03:53 Temperature Source Temporal Artery Scan 05/26/24 03:53 Pulse Rate 114 H 05/26/24 03:53 Pulse Rhythm Regular 05/26/24 03:53 Respiratory Rate 20 05/26/24 03:53 Blood Pressure 127/86 05/26/24 03:53 Blood Pressure Mean 99 05/26/24 03:53 Blood Pressure Position Sitting 05/26/24 03:53 Pulse Oximetry 98 05/26/24 03:53 Oxygen Delivery Method Room Air 05/26/24 03:53 Vital Signs Temperature 97.8 F 05/26/24 03:53 Pulse Rate 114 H 05/26/24 03:53 Respiratory Rate 20 05/26/24 03:53 Blood Pressure 127/86 05/26/24 03:53 Pulse Oximetry 98 05/26/24 03:53 Oxygen Delivery Method Room Air 05/26/24 03:53 Temperature 97.8 F 05/26/24 03:53 Pulse Rate 114 H 05/26/24 03:53 Respiratory Rate 20 05/26/24 03:53 Blood Pressure 127/86 05/26/24 03:53 Pulse Oximetry 98 05/26/24 03:53 Oxygen Delivery Method Room Air 05/26/24 03:53 Discharge Plan Discharge Clinical Impression: Mastalgia Patient Disposition: Home, Self-Care Condition: Stable Additional Instructions: If you continue to have breast symptoms, you need to follow up in clinic for further evaluation and management. You certainly can try some Tylenol or ibuprofen and see if this helps relieve some of your symptoms. I do not feel any palpable mass in either breast at this time. If you should feel a discrete lesion in your breast, your doctor can order an ultrasound. We do not do mammography or routine breast ultrasonography out of the ER. Activity Level: No Restrictions Prescriptions: No Action ibuprofen 600 mg tablet 1,200 mg PO BID quetiapine 50 mg tablet extended release 24 hr 50 mg PO QPM lorazepam 0.5 mg tablet 0.5 mg PO 3XD PRN (Reason: panic attack) Follow Up/Referrals: Provider,Not a Local [Primary Care Provider] - Stand Alone Forms: [employer] Info Instructions
--- OUTSIDE RECORDS SUMMARY | 2024-05-26 04:11 | XMS_ITS | Encounter Summary ---
Author Organization [facility] Address [address] [place] [address]. [place] [address] Care Team Providers Care Cattle Trader Name Role Phone Maria M Lee MD Primary Care Provider [phone] Terra Mcintyre PA-C Unavailable Fito Valencia MD Unavailable No Ref-Primary, Physician Primary Care Provider Reason for Visit * Reason Onset Date Comments MH/CD Inpatient 12/11/2019 Encounter Details Date Type Department Care Team ([facility] Contact Info) Description 12/11/2019 Telephone [facility] Behavioral Health Intake [address] [place] [address] Generic, Behavioral Intake, MH/CD Inpatient [...] behavioral bed placement: Yes S: 19/F in [facility] ED for anxiety. Report from [facility] [...] anxiety. Pt attends OP day treatment at [facility] 5 days a week. Pt reports between school and OP treatment, she has a lot on her plate which exacerbates her anxiety. Pt reports not being med-compliant and that she feels something bad will happen if she takes her medications. No SI, SIB nor HI. No reported aggressive behaviors or psychotic sxs. Per district superintendent, pt is calm, pleasant and cooperative in [...] MH placement work list at this time. 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 [address] [place] [address] PCP - General Pediatrics 07/18/15 04/28/23 No Ref-Primary, Physician PCP - General 04/29/23 Terra Mcintyre PA-C [address] [place] [address] Physician Hospital Aides And Assistants Teacher Urology 06/18/20 04/28/23 Fito Valencia MD [facility] [address] [place] [address] Referring Physician Emergency Medicine 06/18/20 3 4 documented as of this encounter
--- OUTSIDE RECORDS SUMMARY | 2024-05-26 04:11 | XMS_ITS | Clinical Summary ---
Author Organization [place] Address [address] [place] [address] Care Team Providers Care Composition Weatherboard Installer Name Role Phone No Ref-Primary, Physician Primary [...] GENERAL ORDERABLES Final Result Performing Organization Address [facility] [place]/State/ZIP Co de Phone Number LABCOCL G[facility] ([facility]) [address] [place] [address], [facility] [phone] from Last 3 Months or Most Recently Relevant to Health Maintenance Care Teams Composition Weatherboard Installer Relationship Specialty Start Date End Date No Ref-Primary, Physician PCP - General 04/29/23
--- OUTSIDE RECORDS SUMMARY | 2024-05-26 04:11 | XMS_ITS | Clinical Summary ---
Author Organization [employer] Address [facility] [place] [address] Care Team Providers Care Pin Ticket Machine Operator Name Role Phone Benjy Li MD Primary Care Provider [phone] Allergies No known active allergies Medications QUEtiapine [...] Type Department Care Team Description 05/11/2024 Telephone [facility] [address] [place] [address] Apollo Santamaria MD Surgical Followup 05/08/2024 2:10 PM CDT Office Visit [facility] [place] [address] [place] [address] Benjy Li MD Follow Up (After having emergency surgery for her appendix) 05/07/2024 Travel 05/07/2024 Patient Outreach [facility] [place] [address] [place] [address] Abbie Garcia, NIYAH Primary RN Care Management; Hospital F/U (Acute appendicitis /DOD: 05/06/24/LACE: 67) 05/06/2024 7:37 AM CDT Anesthesia Event [address] [address] Braden Ahuja CRNA 05/06/2024 7:35 AM CDT - 05/06/2024 9:06 AM CDT Surgery [address] [address] Apollo Santamaria MD LAPAROSCOPIC APPENDECTOMY 05/05/2024 3:22 PM CDT - 05/06/2024 3:28 PM CDT Hospital Encounter [address] [address] Aniket Wilson PA Smith, Kevin Scott, MD Hospitalist, [facility] Mancia, Jonathan Mojica, DO Acute appendicitis with localized peritonitis, without perforation, abscess, or gangrene (Primary Dx); Acute appendicitis, unspecified acute appendicitis type Discharge Disposition: Home Self Care 05/05/2024 Travel 04/16/2024 1:45 PM CDT Nurse/Clinic Staff Only [facility] [place] [address] [place] [address] Immunization/Injecti on (Rabies #2) 04/16/2024 Travel 04/13/2024 Telephone [facility] [place] [address] [facility] [place], [place] [id number] Cameron Pearson MD Medication Management (typhoid vaccin,live,attenuat ed 2 billion unit capsule/Si caps) 04/09/2024 1:00 PM CLIENT RESOLUTION SPECIALIST Office Visit [facility] [place] [address] [place] [address] Cameron Pearson MD Travel ([facility]) 04/09/2024 Travel 02/29/2024 10:25 AM CLIENT RESOLUTION SPECIALIST Office Visit [facility] [place] [address] [place] [address] Benjy Li MD Medication Management (panic attacks) [...] AM CDT) Case Report Pathology Report Case: [id number] Authorizing Provider: Apollo Santamaria Collected: 05/06/2024 Hipolito Pagan MD Ordering Location: [facility] Received: 05/06/[address] [place] [address] Pathologist: Abiodun Millard MD Specimen: Appendix 05/08/2024 1:57 PM CDT [facility] Final Diagnosis A) APPENDIX, APPENDECTOMY: 1. Acute appendicitis and periappendicitis 2. Negative for neoplasm 05/08/2024 1:57 PM CDT [facility] at 1357 CDT Clinical Information Acute appendicitis 05/08/2024 1:57 PM CDT [facility] Gross Description A) Received fresh labeled with the patient's name and appendix, is a vermiform appendix with attached mesoappendix, 6.5 x 1.0 x 1.0 cm. The serosa is white-lee within fibrous adhesions. The mucosa is andrew-brown and moderately hemorrhagic. The wall is averaging 0.3 cm in thickness. There is no fecalith, perforation and mass identified. Hat Mender sections to include inked en face proximal margin are submitted in 1 cassette. TTP 05/07/2024 05/08/2024 1:57 PM CDT [facility] Microscopic Description The final diagnosis is based on microscopic examination of appropriate sections of all specimens. 05/08/2024 1:57 PM CDT [facility] Additional Information Interpreted at [facility] - [address], [place] [address] 05/08/2024 1:57 PM CDT [facility] Tissue APPENDIX SPECIMEN / Unknown 05/06/2024 8:28 AM CDT 05/06/2024 11:29 AM CDT us Apollo Santamaria MD PATHOLOGY/CYTOLOGY Final Result [facility] [address] [place] [address], * HCHG TUBE PR1, HCHG STYLET PR1 [...] provider. EXAM: CT ABDOMEN PELVIS W LOCATION: [facility] DATE: 05/05/2024 INDICATION: RLQ abdominal pain. COMPARISON: [...] provider. EXAM: CT ABDOMEN PELVIS W LOCATION: [facility] DATE: 05/05/2024 INDICATION: RLQ abdominal pain. COMPARISON: [...] ve Non-Reacti ve 05/06/2024 3:[address] [facility] Blood BLOOD SPECIMEN / Unknown IV Start / Unknown 05/05/2024 4:27 PM CDT 05/05/2024 4:30 PM CDT Aniket Antonio GARCIA SEND OUTS Final R esult [facility] [address] [place] [address], [place] * RAPID HIV SCREEN (05/05/2024 4:16 PM CDT) RAPID HIV SCREEN Non-React daniel Non-Reactiv e, Invalid 05/05/2024 4:48 PM CDT [facility] Comment:A NONREACTIVE test r esult means that HIV-1 or HIV-2 antibodies and HIV-1 p24 antigen were not detected in the specimen. Blood BLOOD SPECIMEN / Unknown IV Start / Unknown 05/05/2024 4:16 PM CDT 05/05/2024 4:20 PM CDT [facility] Antonio GARCIA CHEMISTRY Final R esult Performing Organization Address City/[facility]/ZIP Co de Phone Number [facility] [address] [place] [address], * TRICHOMONAS, CODY, AND BACTERIAL VAGINOSIS BY MEÑO (05/05/2024 4:04 PM CDT) Pathologist [facility] CODY SPECIES Negative Negative 7:34 PM CDT [facility] CODY GLABRATA Negative Negative 05/06/2024 7:34 PM CDT [facility] TRICHOMONAS VVA Negative Negative 7:34 PM CDT [facility] BACTERIAL VAGINOSIS Negative Negative 05/06/2024 7:34 PM CDT [facility] Other VAGINAL SWAB / Unknown Non-Blood / Unknown 05/05/2024 4:04 PM CDT 05/05/2024 4:07 PM CDT Aniket GARCIA MICROBIOLOGY Final R esult [facility] [address] [place] [address], [place] * (ABNORMAL) URINALYSIS MICROSCOPIC (05/05/2024 4:04 PM CDT) RBC 0-2 0-2, None Seen /HPF 05/05/2024 4:28 PM CDT [facility] WBC 6-10(A) 0-2, 3-5, None Seen /HPF 05/05/2024 4:28 PM CDT [facility] BACTERIA Many(A) None Seen, Rare, Few Bacteria/H PF 05/05/2024 4:28 PM CDT [facility] EPITHELIAL CELLS Many(A) None Seen, Few Epi/HPF 05/05/2024 4:28 PM CDT [facility] Mucus Present 05/05/2024 4:28 PM CDT [facility] Urine URINE SPECIMEN / Unknown Non-Blood / Unknown 05/05/2024 4:04 PM CDT 05/05/2024 4:07 PM CDT Aniket GARCIA URINE Final R esult [facility] [address] [place] [address], * GC CHLAMYDIA TRACH PROBE - FEMALE (05/05/2024 4:04 PM CDT) CHLAMYDIA PROBE Negative 8:01 PM CDT [facility] N GONORRHOEAE PROBE Negative 05/06/2024 8:01 PM CDT [facility] Other VAGINAL SWAB / Unknown Non-Blood / Unknown 05/05/2024 4:04 PM CDT 05/05/2024 4:07 PM CDT Aniket GARCIA MICROBIOLOGY Final R esult [facility] [address] [place] [address], [place] * (ABNORMAL) URINALYSIS W REFLEX MICROSCOPIC IF POSITIVE (05/05/2024 4:04 PM CDT) COLOR Yellow Yellow Color 05/05/2024 4:27 PM CDT [facility] CLARITY Slightly Cloudy(A) Clear Clarity 05/05/2024 4:27 PM CDT [facility] SPECIFIC GRAVITY,URINE >=1.030(A) 1.010, 1.015, 1.020, 1.025 05/05/2024 4:27 PM CDT [facility] PH,URINE 6.0 6.0, 7.0, 8.0, 5.5, 6.5, 7.5, 8.5 05/05/2024 4:27 PM CDT [facility] UROBILINOGEN, QUALITATIVE Normal Normal EU/dl 05/05/2024 4:27 PM CDT [facility] PROTEIN, URINE Negative Negative mg/dL 05/05/2024 4:27 PM CDT [facility] GLUCOSE, URINE Negative Negative mg/dL 05/05/2024 4:27 PM CDT [facility] KETONES,URINE Negative Negative mg/dL 05/05/2024 4:27 PM CDT [facility] BILIRUBIN,URI NE Negative Negative 05/05/2024 4:27 PM CDT [facility] OCCULT BLOOD,URINE Negative Negative 05/05/2024 4:27 PM CDT [facility] NITRITE Negative Negative 05/05/2024 4:27 PM CDT [facility] LEUKOCYTE ESTERASE Negative Negative 05/05/2024 4:27 PM CDT [facility] Urine URINE SPECIMEN / Unknown Non-Blood / Unknown 05/05/2024 4:04 PM CDT 05/05/2024 4:07 PM CDT Aniket GARCIA URINE Final R esult [facility] [address] [place] [address], [place] [phone] * URINE (05/05/2024 4:04 PM CDT) ,URIN E Negative Negative 05/05/2024 4:14 PM CDT [facility] Urine URINE SPECIMEN / Unknown Non-Blood / Unknown 05/05/2024 4:04 PM CDT 05/05/2024 4:07 PM CDT Aniket GARCIA URINE Final R esult [facility] [address] [place] [address], [place] [phone] * (ABNORMAL) CBC WITH AUTO DIFFERENTIAL (05/05/2024 4:02 PM CDT) [facility] WHITE BLOOD COUNT 12.9(H) 4.5 - 11.0 thou/cu mm 05/05/2024 4:05 PM CDT [facility] RED BLOOD COUNT 4.56 4.00 - 5.20 mil/cu mm 05/05/2024 4:05 PM CDT [facility] HEMOGLOBIN 13.3 12.0 - 16.0 g/dL 05/05/2024 4:05 PM CDT [facility] HEMATOCRIT 41.0 33.0 - 51.0 % 05/05/2024 4:05 PM CDT [facility] MCV 90 80 - 100 fL 05/05/2024 4:05 PM CDT [facility] MCH 29.2 26.0 - 34.0 pg 05/05/2024 4:05 PM CDT [facility] MCHC 32.4 32.0 - 36.0 g/dL 05/05/2024 4:05 PM CDT [facility] RDW 14.8 11.5 - 15.5 % 05/05/2024 4:05 PM CDT [facility] PLATELET COUNT 337 140 - 440 thou/cu mm 05/05/2024 4:05 PM CDT [facility] MPV 10.8 6.5 - 11.0 fL 05/05/2024 4:05 PM CDT [facility] NRBC 0.0 % 05/05/2024 4:05 PM CDT [facility] ABS NRBC 0.0 thou /cu mm 05/05/2024 4:05 PM CDT [facility] % NEUT 73.2 % 05/05/2024 4:05 PM CDT [facility] % LYMPH 15.1 % 05/05/2024 4:05 PM CDT [facility] % MONO 10.1 % 05/05/2024 4:05 PM CDT [facility] % EOS 0.9 % 05/05/2024 4:05 PM CDT [facility] % BASO 0.2 % 05/05/2024 4:05 PM CDT [facility] % IMMATURE GRAN (METAS,MYELOS,NY OS) 0.5 % 05/05/2024 4:05 PM CDT [facility] ABSOLUTE NEUTROPHILS 9.4(H) 1.7 - 7.0 thou/cu mm 05/05/2024 4:05 PM CDT [facility] ABSOLUTE LYMPHOCYTES 2.0 0.9 - 2.9 thou/cu mm 05/05/2024 4:05 PM CDT [facility] ABSOLUTE MONOCYTES 1.3(H) <0.9 thou/cu mm 05/05/2024 4:05 PM CDT [facility] ABSOLUTE EOSINOPHILS 0.1 <0.5 thou/cu mm 05/05/2024 4:05 PM CDT [facility] ABSOLUTE BASOPHILS 0.0 <0.3 thou/cu mm 05/05/2024 4:05 PM CDT [facility] ABSOLUTE IMMATURE GRANULOCYTES(MET ,MYELOS,PROS) 0.1 <0.3 thou/cu mm 05/05/2024 4:05 PM CDT [facility] Blood BLOOD SPECIMEN / Unknown IV Start / Unknown 05/05/2024 4:02 PM CDT 05/05/2024 4:02 PM CDT Aniket GARCIA HEMATOLOGY Final R esult [facility] [address] [place] [address], * LIPASE (05/05/2024 4:02 PM CDT) LIPASE 13.8 13.0 - 60.0 IU/L 05/05/2024 4:47 PM CDT [facility] Blood BLOOD SPECIMEN / Unknown IV Start / Unknown 05/05/2024 4:02 PM CDT 05/05/2024 4:02 PM CDT Aniket GARCIA CHEMISTRY Final R esult [facility] [address] [place] [address], * (ABNORMAL) COMP METABOLIC PANEL (05/05/2024 4:02 PM CDT) SODIUM 137 136 - 145 mmol/L 05/05/2024 4:27 PM CDT [facility] POTASSIUM 4.9 3.5 - 5.1 mmol/L 05/05/2024 4:27 PM CDT [facility] Comment:Specimen mildly hemo lyzed. Interpret with caution. CHLORIDE 104 98 - 107 mmol/L 05/05/2024 4:27 PM CDT [facility] CO2,TOTAL 24 22 - 29 mmol/L 05/05/2024 4:27 PM CDT [facility] ANION GAP 9 5 - 18 05/05/2024 4:27 PM CDT [facility] GLUCOSE 88 70 - 99 mg/dL 05/05/2024 4:27 PM CDT [facility] CALCIUM 9.2 8.8 - 10.4 mg/dL 05/05/2024 4:27 PM CDT [facility] Comment: Reference ranges for this test were updated on 12/13/2023 to reflect our healthy population more accurately. Reference range changes are not retroactively applied to results, but previous results using the same methodology can be interpreted in the context of the new reference range. BUN 6 6 - 20 mg/dL 05/05/2024 4:27 PM CDT [facility] CREATININE 0.81 0.50 - 0.90 mg/dL 05/05/2024 4:27 PM CDT [facility] BUN/CREAT RATIO 7(L) 10 - 20 4:27 PM CDT [facility] eGFR >90 >90 mL/min/1.7 3m2 05/05/2024 4:27 PM CDT [facility] Comment:As of 2021, eG FR is calculated by the CKD-EPI creatinine equation without race adjustment. eGFR can be influenced by muscle mass, exercise, and diet. The reported eGFR is an estimation only and is only applicable if the renal function is stable. ALBUMIN 3.8(L) 4.0 - 4.9 g/dL 05/05/2024 4:27 PM CDT [facility] PROTEIN,TOTAL 7.8 6.0 - 8.0 g/dL 05/05/2024 4:27 PM CDT [facility] BILIRUBIN,TOTAL 0.2 0.0 - 1.2 mg/dL 05/05/2024 4:27 PM CDT [facility] ALK PHOSPHATASE 72 35 - 104 IU/L 05/05/2024 4:27 PM CDT [facility] ALT (SGPT) 9(L) 10 - 35 IU/L 05/05/2024 4:27 PM CDT [facility] AST (SGOT) 29 10 - 35 IU/L 05/05/2024 4:27 PM CDT [facility] Blood BLOOD SPECIMEN / Unknown IV Start / Unknown 05/05/2024 4:02 PM CDT 05/05/2024 4:02 PM CDT Aniket GARCIA CHEMISTRY Final R esult [facility] [address] [place] [address], * SCAN-CARDIAC STRIP (05/05/2024 12:00 AM CDT) Narrative 05/05/2024 12:00 AM CDT Ordered by an unspecified provider. us Other Clinical Staff OTHER Final Resul t * ANTI HCV (11/08/2023 1:34 PM CDT) HEPATITIS C ANTIBODY NON-REACTI VE NON-REACT [facility] Comment: HCV antibody was non-reactive. There is no laboratory evidence of HCV infection. In most cases, no further action is required. However, if recent HCV exposure is suspected, a test for HCV RNA (test code 60947) is suggested. For additional information please refer to http://education.[employer]/faq/ZJY99d1 (This link is being provided for informational/ educational purposes only.) Blood BLOOD SPECIMEN / Unknown 11/08/2023 1:34 PM CDT 11/08/2023 1:35 PM CDT Chidi Grewal MD SEND OUTS Final Result [facility] [address] [place] [address], [facility] [address] [place] [address] from Last 3 Months or Most Recently Relevant to Health Maintenance Insurance [facility] Advance Directives * Full Code (Latest Code Status on File) Date Activated Date Inactivated Comments 05/05/2024 6:52 PM 05/06/2024 5:39 PM Question Answer Comments Code Status Discussion: Reviewed Preferences Care Teams Pin Ticket Machine Operator Relationship Specialty [place] [address] [place] [address] PCP - General Family Practice 03/21/23
--- OUTSIDE RECORDS SUMMARY | 2024-05-26 04:11 | XMS_ITS | Clinical Summary ---
Author Organization [facility] Address [address], [place] [address] Care Team Providers Care Tank Car Mechanic Name Role Phone Jp White MD Primary Care Provider + [phone] Source Comments You are receiving this document as you are listed as the primary care provider,follow-up provider, or the patient has been referred to you for consultation.This is in compliance with the Medicare and[facility] Cent[facility] EHR Incentive Program,which states Providers who transition their patient to another setting of careor provider of care or refers their patient to another provider of care shouldprovide summary care record for each transition of care or referral. [facility] Allergies No known active allergies Medications oxyCODONE [...] 36.9 C (98.5 F) 12/18/2018 6:59 PM SHIPPING CLERK Respiratory Rate 14 06/20/2020 9:25 AM CDT Oxygen Saturation 98% 12/18/2018 6:59 PM SHIPPING CLERK Inhaled Oxygen Concentration - - Weight [...] Vaccine Completed 03/09/2019, 05/13/2014 Insurance [id number] [place] [id number] [email or web address] [facility] Care Teams Tank Car Mechanic Relationship Specialty Start Date End Date Jp White MD [facility] [address] PCP - General Family Practice 12/18/18
== END 2024-05-26 04:15 | disposition home or self-care (01) ==
PROVIDERS: Emergency Provider Family Medicine
DX: N64.4 Mastodynia (principal)
CPT/HCPCS: 99282